=== PATIENT | female | born 1965 | race Caucasian/White ===

== ENCOUNTER 2021-01-18 14:09 | Emergency (ER) | payer MEDICARE ==
[2021-01-18] MEDS ORDERED: Famotidine 20 MG/2 ML SDV IVPUSH ONE (14:47)
[2021-01-18] MEDS ORDERED: Sodium Chloride 0.9% 10 ML Syringe FLUSH PRN (14:47)
[2021-01-18] MEDS ORDERED: Ondansetron 4 MG Tab.DIS PO ONE (14:47)
[2021-01-18] MEDS ORDERED: Sodium Chloride 0.9% 1,000 ML IV SCH (15:00)
--- NOTE | 2021-01-18 17:15 | EDM.PDOC ---
ED HPI GENERAL MEDICAL PROBLEM - General Chief Complaint: Abdominal Pain Stated Complaint: ABDOMINAL PAIN Time Seen by Provider: 01/18/21 14:29 Source of Information: Reports: Patient, RN Notes Reviewed - History of Present Illness INITIAL COMMENTS - FREE TEXT/NARRATIVE: 55 yr old female comes in with abd pain that has been present for several weeks or more, worse this past week. Pain is mostly upper mid abd with occasional radiation up into chest. She has had nausea, decreased appetite. No vomiting or diarrhea. Has been constipated. Hx of prior cholecystectomy. No recent cough, fever or chills. She was scoped upper and lower late last year. She states she is reduced to "eating eggs". Stopped taking her omeprazole 2 days ago for reasons that are unclear. Not actively vomiting. No blood in the stool. She describes hx of severe GERD, states it has been bad "ever since I had my GB out" abd Pain Score (Numeric/FACES): 9 - Related Data Allergies Allergy/AdvReac Type Severity Reaction Status Date / Time Penicillins Allergy Severe Hives Verified 01/18/21 14:20 Sulfa (Sulfonamide Allergy Severe Hives Verified 01/18/21 14:20 Antibiotics) Past Medical History Musculoskeletal History: Reports: Other (See Below) Other Musculoskeletal History: spinabifida, several muscular skeletal surgeries Social & Family History - Tobacco Use Tobacco Use Status *Q: Never Tobacco User - Recreational Drug Use Recreational Drug Use: No ED ROS GENERAL - Review of Systems Review Of Systems: See Below Constitutional: Denies: Fever, Chills, Diaphoresis HEENT: Reports: No Symptoms Respiratory: Denies: Shortness of Breath Cardiovascular: Denies: Chest Pain GI/Abdominal: Reports: Abdominal Pain, Constipation (chronic), Decreased Appetite, Nausea. Denies: Diarrhea, Hematemesis, Hematochezia, Melena, Vomiting ED EXAM, GI/ABD - Physical Exam Exam: See Below General Appearance: Alert, No Apparent Distress Throat/Mouth: Normal Inspection Head: Atraumatic Neck: Supple Respiratory/Chest: No Respiratory Distress, Lungs Clear, Normal Breath Sounds Cardiovascular: Tachycardia GI/Abdominal Exam: Tender (Moderate upper mid abd tenderness, lower abd soft and nontender). No: Guarding, Rebound Back Exam: No: CVA Tenderness (L), CVA Tenderness (R) Neurological: Alert, Oriented, No Motor/Sensory Deficits Skin Exam: Warm, Dry, Normal Color Course - Vital Signs Last Recorded V/S: Last Vital Signs Temp 97.1 F 01/18/21 14:16 Pulse 108 H 01/18/21 14:16 Resp 18 01/18/21 14:16 BP 129/86 01/18/21 14:16 Pulse Ox 96 01/18/21 14:16 - Orders/Labs/Meds Orders: Active Orders 24 hr Category Date Time Status Abdomen 2V AP Flat Upright [CR] Stat Exams 01/18/21 17:12 Taken Peripheral IV Insertion Adult [OM.PC] Stat Oth 01/18/21 14:47 Ordered Labs: Laboratory Tests 01/18/21 01/18/21 01/18/21 Range/Units 14:20 14:20 14:20 WBC 11.23 H (3.98-10.04) K/mm3 RBC 4.79 (3.98-5.22) M/mm3 Hgb 13.2 (11.2-15.7) gm/dl Hct 40.7 (34.1-44.9) % MCV 85.0 (79.4-94.8) fl MCH 27.6 (25.6-32.2) pg MCHC 32.4 (32.2-35.5) g/dl RDW Std Deviation 39.9 (36.4-46.3) fL Plt Count 406 H (182-369) K/mm3 MPV 9.2 L (9.4-12.3) fl Neut % (Auto) 66.8 (34.0-71.1) % Lymph % (Auto) 24.6 (19.3-51.7) % Graham % (Auto) 6.2 (4.7-12.5) % Eos % (Auto) 1.8 (0.7-5.8) Baso % (Auto) 0.3 (0.1-1.2) % Neut # (Auto) 7.51 H (1.56-6.13) K/mm3 Lymph # (Auto) 2.76 (1.18-3.74) K/mm3 Graham # (Auto) 0.70 H (0.24-0.36) K/mm3 Eos # (Auto) 0.20 (0.04-0.36) K/mm3 Baso # (Auto) 0.03 (0.01-0.08) K/mm3 Sodium 140 (136-145) mEq/L Potassium 3.6 (3.5-5.1) mEq/L Chloride 100 (98-107) mEq/L Carbon Dioxide 28 (21-32) mEq/L Anion Gap 15.6 H (5-15) BUN 18 (7-18) mg/dL Creatinine 1.1 H (0.55-1.02) mg/dL Est Cr Clr Drug Dosing 55.53 mL/min Estimated GFR (MDRD) 51 (>60) mL/min BUN/Creatinine Ratio 16.4 (14-18) Glucose 122 H (74-106) mg/dL Calcium 9.5 (8.5-10.1) mg/dL Total Bilirubin 0.4 (0.2-1.0) mg/dL GGT 21 (5-55) U/L AST 15 (15-37) U/L ALT 24 (14-59) U/L Alkaline Phosphatase 130 H (46-116) U/L C-Reactive Protein 2.1 H* (<1.0) mg/dL Total Protein 8.4 H (6.4-8.2) g/dl Albumin 3.3 L (3.4-5.0) g/dl Globulin 5.1 gm/dL Albumin/Globulin Ratio 0.7 L (1-2) Lipase 138 (73-393) U/L Meds: Medications Discontinued Medications Generic Name Dose Route Start Last Admin Trade Name Freq PRN Reason Stop Dose Admin Famotidine 20 mg 01/18/21 14:47 01/18/21 15:01 Pepcid IVPUSH 01/18/21 14:48 20 mg ONETIME ONE Administration Sodium Chloride 1,000 mls @ 150 mls/hr 01/18/21 15:00 01/18/21 15:00 Normal Saline IV 150 mls/hr ASDIRECTED RACHEAL Administration Magnesium Citrate 296 ml 01/18/21 18:32 01/18/21 18:46 Citrate Of Magnesia PO 01/18/21 18:33 296 ml ONETIME ONE Administration Magnesium Citrate Confirm 01/18/21 18:34 01/18/21 18:47 Citrate Of Magnesia Administered 01/18/21 18:35 Not Given Dose 296 ml .ROUTE .STK-MED ONE Ondansetron HCl 4 mg 01/18/21 14:47 01/18/21 15:01 Zofran Odt PO 01/18/21 14:48 4 mg ONETIME ONE Administration Sodium Chloride 10 ml 01/18/21 14:47 01/18/21 15:01 Saline Flush FLUSH 10 ml ASDIRECTED PRN Administration Keep Vein Open - Re-Assessments/Exams Free Text/Narrative Re-Assessment/Exam: 01/18/21 18:29 WBC 11,000, CRP 2. Lipase, bili., liver stuff all normal. Feels much better after zofran 4 mg IV and pepcid 20 mg IV. As noted she has not been taking her omeprazole the last 2 or 3 days. She describes severe GERD with constipation on top of that. Her flat and upright shows large amt of stool in the colon. she states she is having somewhat regular BM's. she does not appear to have an acute abd. Have offered CT of Abd, she does not feel that she needs that. She feels up to starting omeprazole again. Will have her add pepcid or famotidine 20 mg daily for now. Will have her follow up with Dr Tang or Dr Tyson early next week. 01/18/21 Flat and upright abd also show a very large amt of stool in the colon, will send home with a bottle of mag citrate. Departure - Departure Time of Disposition: 18:30 Disposition: Home, Self-Care 01 Condition: Fair Clinical Impression: Abdominal pain Gastritis Qualifiers: Gastritis type: unspecified gastritis Chronicity: unspecified Gastritis bleeding: without bleeding Qualified Code(s): K29.70 - Gastritis, unspecified, without bleeding Constipation Qualifiers: Constipation type: unspecified constipation type Qualified Code(s): K59.00 - Constipation, unspecified - Discharge Information Instructions: Gastritis, Adult, [id number] Referrals: Cecilia Garner MD [Primary Care Provider] - Forms: ED Department Discharge Additional Instructions: Resume your omeprazole 20 mg twice daily. In addition start pepcid (famotidine generic) 20 mg twice daily for further acid reduction. Continue to take tums in addition as needed or liquid maalox or mylanta 3 to 4 times daily for further acid neutralization. Mag Citrate, drink 1/2 bottle tonight, drink the remainder tomorrow or at a later date as needed. See Dr Tang or Dr Tyson at [facility] next week, next available appointment. Return to ED as needed if symptoms worsening in any way. Sepsis Event Note (ED) - Evaluation Sepsis Screening Result: No Definite Risk - My Orders Last 24 Hours: My Active Orders 01/18/21 14:47 Peripheral IV Insertion Adult [OM.PC] Stat 01/18/21 17:12 Abdomen 2V AP Flat Upright [CR] Stat - Assessment/Plan Last 24 Hours: My Active Orders 01/18/21 14:47 Peripheral IV Insertion Adult [OM.PC] Stat 01/18/21 17:12 Abdomen 2V AP Flat Upright [CR] Stat
[2021-01-18] MEDS ORDERED: Magnesium Citrate Solution 296 ML Bottle PO ONE (18:32)
[2021-01-18] MEDS ORDERED: Magnesium Citrate Solution 296 ML Bottle ONE (18:34)
--- NOTE | 2021-01-20 09:20 | CR ---
Abdomen: Supine and upright views of the abdomen were obtained. Comparison: No prior abdominal x-rays available. Slight increase stool within portions of the colon are noted. Bowel gas pattern is otherwise unremarkable. Degenerative change and mild scoliosis is noted within the spine. Left hip prosthesis is noted. Previous defect is seen within the posterior sacrum either postsurgical or developmental. Surgical clip is seen from prior cholecystectomy. No free air is seen. Impression: 1. Findings as noted above. 2. Nothing acute is seen. Diagnostic code #2
== END 2021-01-18 18:50 | disposition home or self-care (01) ==
LOC: JD.ED 14:09
DX: K29.70 Gastritis, unspecified, without bleeding (principal); K59.00 Constipation, unspecified; Z88.0 Allergy status to penicillin; Z88.2 Allergy status to sulfonamides; Q05.9 Spina bifida, unspecified
CPT/HCPCS: 36415; 74019; 80053; 82977; 83690; 85025; 86140; 96374; 99284; A9270; J3490; J7030

== ENCOUNTER 2021-07-01 15:47 | Emergency (ER) | payer MEDICARE ==
--- NOTE | 2021-07-01 16:19 | EDM.PDOC ---
ED HPI GENERAL MEDICAL PROBLEM - General Chief Complaint: General Stated Complaint: RT ANKLE SWELLING/SENT BY RAFFAELE Time Seen by Provider: 07/01/21 16:18 - History of Present Illness INITIAL COMMENTS - FREE TEXT/NARRATIVE: 55-year-old female sent here by Dr. Garner as she is not able to keep her medications down. Other than the patient's injectable diabetes medications patient has not been taking her oral medications because she just keeps throwing them back up and she does not see the point taking them if she vomits some right back up. She has had significantly worsening edema with this. She denies any chest pain or breathing difficulties with this. Patient vomits 0-3 times a day, it is usually dark watery material black at times. She denies fever or chills and otherwise does not seem to have significant abdominal pain. The patient has a lot of problems with her hiatal hernia and they are anticipating surgery for this. Her lower extremity edema is getting much worse that she is no longer on her diuretics. She denies any chest pain or shortness of breath however. Generalized Pain Score (Numeric/FACES): 8 - Related Data Allergies Allergy/AdvReac Type Severity Reaction Status Date / Time Penicillins Allergy Severe Hives Verified 07/01/21 16:17 Sulfa (Sulfonamide Allergy Severe Hives Verified 07/01/21 16:17 Antibiotics) Home Meds: Home Meds Furosemide [Lasix] 40 mg PO DAILY #20 tab 07/01/21 [Rx] Insulin Degludec [Tresiba] 50 units SUBCUT DAILY 07/01/21 [History] Liraglutide [Victoza 2-Kevin] 1.8 mg SUBCUT DAILY 07/01/21 [History] Ondansetron [Ondansetron ODT] 4 mg PO Q6H PRN #30 tab.rapdis 07/01/21 [Rx] Potassium Chloride [Klor-Con M10] 10 meq PO ASDIRECTED #40 tab.er.prt 07/01/21 [Rx] Past Medical History Musculoskeletal History: Reports: Other (See Below) Other Musculoskeletal History: spinabifida, several muscular skeletal surgeries ED ROS GENERAL - Review of Systems Review Of Systems: See Below Constitutional: Denies: Fever, Chills HEENT: Reports: No Symptoms Respiratory: Reports: No Symptoms Cardiovascular: Reports: No Symptoms GI/Abdominal: Reports: Nausea, Vomiting. Denies: Black Stool, Bloody Stool : Reports: No Symptoms Musculoskeletal: Reports: No Symptoms Skin: Reports: No Symptoms Neurological: Reports: No Symptoms ED EXAM, GENERAL - Physical Exam Exam: See Below Exam Limited By: No Limitations General Appearance: Alert, No Apparent Distress Eye Exam: Bilateral Eye: Normal Inspection, PERRL Ears: Normal External Exam, Normal Canal, Hearing Grossly Normal, Normal TMs Nose: Normal Inspection, Normal Mucosa, No Blood Throat/Mouth: Normal Inspection, Normal Lips, Normal Gums, Normal Oropharynx, Normal Voice, No Airway Compromise Head: Atraumatic, Normocephalic Neck: Normal Inspection, Supple, Non-Tender, Full Range of Motion. No: Lymphadenopathy (L), Lymphadenopathy (R) Respiratory/Chest: No Respiratory Distress, Lungs Clear, Normal Breath Sounds Cardiovascular: Regular Rate, Rhythm, No Murmur, Other (2-3+ lower extremity edema) GI/Abdominal: Normal Bowel Sounds, Soft, Non-Tender, Other (Obese) Rectal (Female) Exam: Normal Rectal Tone, Heme - Stool, Hemorrhoids. No: Black Stool, Bloody Stool Back Exam: Normal Inspection, Full Range of Motion. No: CVA Tenderness (L), CVA Tenderness (R) Extremities: Pedal Edema (2-3+ pitting). No: No Pedal Edema Neurological: Alert, Oriented, Normal Cognition #1 Interpretation EKG Date: 07/01/21 Rhythm: NSR Rate (Beats/Min): 83 Kirby: Normal P-Wave: Present QRS: Other (Low voltage) ST-T: Normal QT: Normal Comparison: NA - No Prior EKG (Low voltage otherwise normal EKG) Course - Vital Signs Last Recorded V/S: Last Vital Signs Temp 36.4 C 07/01/21 16:12 Pulse 94 07/01/21 16:12 Resp 18 07/01/21 16:12 BP 130/68 07/01/21 16:12 Pulse Ox 98 07/01/21 16:12 - Orders/Labs/Meds Orders: Active Orders 24 hr Category Date Time Status EKG Documentation Completion [RC] STAT Care 07/01/21 17:01 Active Labs: Laboratory Tests 07/01/21 07/01/21 07/01/21 Range/Units 17:19 17:19 17:19 WBC 10.15 H (3.98-10.04) K/mm3 RBC 4.85 (3.98-5.22) M/mm3 Hgb 13.4 (11.2-15.7) gm/dl Hct 40.6 (34.1-44.9) % MCV 83.7 (79.4-94.8) fl MCH 27.6 (25.6-32.2) pg MCHC 33.0 (32.2-35.5) g/dl RDW Std Deviation 41.1 (36.4-46.3) fL Plt Count 329 D (182-369) K/mm3 MPV 9.5 (9.4-12.3) fl Neut % (Auto) 69.3 (34.0-71.1) % Lymph % (Auto) 21.9 (19.3-51.7) % Eaton % (Auto) 5.7 (4.7-12.5) % Eos % (Auto) 2.8 (0.7-5.8) Baso % (Auto) 0.3 (0.1-1.2) % Neut # (Auto) 7.04 H (1.56-6.13) K/mm3 Lymph # (Auto) 2.22 (1.18-3.74) K/mm3 Eaton # (Auto) 0.58 H (0.24-0.36) K/mm3 Eos # (Auto) 0.28 (0.04-0.36) K/mm3 Baso # (Auto) 0.03 (0.01-0.08) K/mm3 PT 10.7 (9.7-12.0) SECONDS INR 1.00 APTT 25.4 (21.7-31.4) SECONDS Sodium 144 (136-145) mEq/L Potassium 3.5 (3.5-5.1) mEq/L Chloride 105 (98-107) mEq/L Carbon Dioxide 31 (21-32) mEq/L Anion Gap 11.5 (5-15) BUN 11 (7-18) mg/dL Creatinine 1.0 (0.55-1.02) mg/dL Est Cr Clr Drug Dosing 61.09 mL/min Estimated GFR (MDRD) 57 (>60) mL/min BUN/Creatinine Ratio 11.0 L (14-18) Glucose 156 H (70-99) mg/dL Calcium 9.2 (8.5-10.1) mg/dL Total Bilirubin 0.2 (0.2-1.0) mg/dL AST 11 L (15-37) U/L ALT 20 (14-59) U/L Alkaline Phosphatase 121 H (46-116) U/L Troponin I < 0.017 (0.00-0.056) ng/mL NT-Pro-B Natriuret Pep (0-125) pg/mL Total Protein 7.8 (6.4-8.2) g/dl Albumin 3.0 L (3.4-5.0) g/dl Globulin 4.8 gm/dL Albumin/Globulin Ratio 0.6 L (1-2) 07/01/21 Range/Units 17:19 WBC (3.98-10.04) K/mm3 RBC (3.98-5.22) M/mm3 Hgb (11.2-15.7) gm/dl Hct (34.1-44.9) % MCV (79.4-94.8) fl MCH (25.6-32.2) pg MCHC (32.2-35.5) g/dl RDW Std Deviation (36.4-46.3) fL Plt Count (182-369) K/mm3 MPV (9.4-12.3) fl Neut % (Auto) (34.0-71.1) % Lymph % (Auto) (19.3-51.7) % Eaton % (Auto) (4.7-12.5) % Eos % (Auto) (0.7-5.8) Baso % (Auto) (0.1-1.2) % Neut # (Auto) (1.56-6.13) K/mm3 Lymph # (Auto) (1.18-3.74) K/mm3 Eaton # (Auto) (0.24-0.36) K/mm3 Eos # (Auto) (0.04-0.36) K/mm3 Baso # (Auto) (0.01-0.08) K/mm3 PT (9.7-12.0) SECONDS INR APTT (21.7-31.4) SECONDS Sodium (136-145) mEq/L Potassium (3.5-5.1) mEq/L Chloride (98-107) mEq/L Carbon Dioxide (21-32) mEq/L Anion Gap (5-15) BUN (7-18) mg/dL Creatinine (0.55-1.02) mg/dL Est Cr Clr Drug Dosing mL/min Estimated GFR (MDRD) (>60) mL/min BUN/Creatinine Ratio (14-18) Glucose (70-99) mg/dL Calcium (8.5-10.1) mg/dL Total Bilirubin (0.2-1.0) mg/dL AST (15-37) U/L ALT (14-59) U/L Alkaline Phosphatase (46-116) U/L Troponin I (0.00-0.056) ng/mL NT-Pro-B Natriuret Pep 325 H (0-125) pg/mL Total Protein (6.4-8.2) g/dl Albumin (3.4-5.0) g/dl Globulin gm/dL Albumin/Globulin Ratio (1-2) Meds: Medications Discontinued Medications Generic Name Dose Route Start Last Admin Trade Name Freq PRN Reason Stop Dose Admin Furosemide 40 mg 07/01/21 18:28 07/01/21 19:08 Furosemide 40 Mg Tab PO 07/01/21 18:29 40 mg ONETIME ONE Administration Ondansetron HCl 4 mg 07/01/21 18:28 07/01/21 18:40 Ondansetron 4 Mg Tab.Dis PO 07/01/21 18:29 4 mg ONETIME ONE Administration Ondansetron HCl 8 mg 07/01/21 19:19 Ondansetron 4 Mg Tab.Dis PO 07/01/21 19:20 ONETIME ONE Potassium Chloride 20 meq 07/01/21 18:28 07/01/21 19:08 Potassium Chloride 20 Meq Tab.Er PO 07/01/21 18:29 20 meq ONETIME ONE Administration - Re-Assessments/Exams Free Text/Narrative Re-Assessment/Exam: 07/01/21 19:20 Chest x-ray is unremarkable abdominal x-ray shows very large stool accumulation especially in the ascending colon but fairly large in the descending colon as well to a lesser degree the transverse colon. I think a lot of her symptoms are secondary to her constipation leading to her nausea and vomiting. The patient by history has some black vomitus material at times but her Hemoccult is negative. She is not been able to keep down her omeprazole. At this point I have strongly urged the patient to use MiraLAX and she has basically given herself a drug holiday her blood sugars are not too bad on her injectable type 2 diabetes medications her legs are horribly swollen I will start her on Lasix 40 mg daily and Klor-Con 20 mEq daily. I will also start her on some Zofran so she can take medicines to keep her other medications down she will restart her omeprazole 30 to 60 minutes before her morning meal she will start out with frequent small meals. Departure - Departure Time of Disposition: 19:22 Disposition: Home, Self-Care 01 Clinical Impression: Nausea & vomiting Constipation Qualifiers: Constipation type: unspecified constipation type Qualified Code(s): K59.00 - Constipation, unspecified - Discharge Information Prescriptions: Potassium Chloride [Klor-Con M10] 10 meq PO ASDIRECTED #40 tab.er.prt Furosemide [Lasix] 40 mg PO DAILY #20 tab Ondansetron [Ondansetron ODT] 4 mg PO Q6H PRN #30 tab.rapdis PRN Reason: Nausea/Vomiting Instructions: Constipation, Adult, Nausea and Vomiting, Adult Referrals: Cecilia Garner MD [Primary Care Provider] - Forms: ED Department Discharge Additional Instructions: You are welcome to return to the emergency room with any problems or concerning symptoms. At this point I think it is essential to get control of your constipation use MiraLAX three fourths of a capful daily. I think when she constipation in is doing better you nausea and vomiting will get better as well. You have been off your medications for a while we can restart them gently at this point getting on your omeprazole is essential. Take this daily 30 to 60 minutes before your morning meal. Hold your other medications for now I started you on Lasix 40 mg take 1 every morning. With this take potassium chloride 2 10 mEq tablets daily you can split these up so it is easier on your stomach. Start MiraLAX 3/4 of a capful daily in 14 to 16 ounces of water. This is very effective for your constipation. Sepsis Event Note (ED) - Evaluation Sepsis Screening Result: No Definite Risk - Focused Exam Vital Signs: Vital Signs Temp Pulse Resp BP Pulse Ox 07/01/21 16:12 36.4 C 94 18 130/68 98 - My Orders Last 24 Hours: My Active Orders 07/01/21 17:01 EKG Documentation Completion [RC] STAT - Assessment/Plan Last 24 Hours: My Active Orders 07/01/21 17:01 EKG Documentation Completion [RC] STAT
--- NOTE | 2021-07-01 17:52 | CR ---
Chest: Portable view of the chest was obtained. Comparison: No prior chest imaging is available. Heart size and mediastinum are normal. Lungs show no acute parenchymal change. Prior left shoulder surgery is noted with mild degenerative change. No acute osseous abnormality is appreciated. Impression: 1. Findings as noted above. 2. Nothing acute is appreciated on portable chest x-ray. Diagnostic code #2
[2021-07-01] MEDS ORDERED: Furosemide 40 MG Tab PO ONE (18:28)
[2021-07-01] MEDS ORDERED: Potassium Chloride 20 MEQ Tab.ER PO ONE (18:28)
[2021-07-01] MEDS ORDERED: Ondansetron 4 MG Tab.DIS PO ONE ×2 (18:28→19:19)
--- NOTE | 2021-07-01 19:01 | CR ---
Abdomen: Supine view of the abdomen was obtained. Comparison: Prior abdominal x-ray of 01/18/21. Left hip prosthesis is noted. Surgical clips are seen from prior cholecystectomy. Mild degenerative change is scattered within the spine. There is increased stool noted throughout the colon. Bowel gas pattern is otherwise unremarkable. No abnormal calcifications or soft tissue abnormality is appreciated. Impression: 1. Increased stool within the colon. 2. Other findings as noted above which are believed to be incidental. Diagnostic code #2
== END 2021-07-01 19:53 | disposition home or self-care (01) ==
LOC: JD.ED 15:47
DX: R11.2 Nausea with vomiting, unspecified (principal); K59.00 Constipation, unspecified; R22.41 Localized swelling, mass and lump, right lower limb; E11.9 Type 2 diabetes mellitus without complications; R60.0 Localized edema; Z88.2 Allergy status to sulfonamides; Z79.4 Long term (current) use of insulin; Z79.899 Other long term (current) drug therapy; Z88.0 Allergy status to penicillin; R60.1 Generalized edema
CPT/HCPCS: 36415; 71045; 74018; 80053; 83880; 84484; 85025; 85610; 85730; 93005; 99284; A9270; 93010; 99283

== ENCOUNTER 2021-07-06 14:47 | Inpatient (IN) | payer MEDICARE ==
[2021-07-06] MEDS ORDERED: Sodium Chloride 0.9% 10 ML Syringe FLUSH PRN (15:17)
--- NOTE | 2021-07-06 15:33 | EDM.PDOC ---
ED HPI GENERAL MEDICAL PROBLEM - General Chief Complaint: Skin Complaint Stated Complaint: SWOLLEN LEGS Time Seen by Provider: 07/06/21 15:08 Source of Information: Reports: Patient History Limitations: Reports: No Limitations - History of Present Illness INITIAL COMMENTS - FREE TEXT/NARRATIVE: The patient presents with redness and swelling to the left lower leg. She was seen here about 5 days ago for nausea and vomiting and leg swelling. She could not keep her medications down and her legs swelled up. She was given something for the nausea and swelling. The swelling is a little better but now for the past to days her left leg has redness. The redness is on the entire foot low leg and it is going past the knee on both sides. She has no fever or chills. She has no chest pain or shortness of breath. Onset: Gradual Duration: Day(s): Location: Reports: Lower Extremity, Left (swelling and redness) Quality: Reports: Sharp Severity: Moderate Improves with: Reports: Immobilization Worsens with: Reports: Movement Context: Denies: Trauma Associated Symptoms: Reports: No Other Symptoms Treatments TAG WRITER: Reports: Other Medication(s) Other Treatments TAG WRITER: triple antibiotic ointment - Related Data Allergies Allergy/AdvReac Type Severity Reaction Status Date / Time Penicillins Allergy Intermediate Hives Verified 07/06/21 15:04 Sulfa (Sulfonamide Allergy Intermediate Hives Verified 07/06/21 15:04 Antibiotics) Home Meds: Home Meds Furosemide [Lasix] 40 mg PO DAILY #20 tab 07/01/21 [Rx] Insulin Degludec [Tresiba] 50 units SUBCUT DAILY 07/01/21 [History] Liraglutide [Victoza 2-Kevin] 1.8 mg SUBCUT DAILY 07/01/21 [History] Ondansetron [Ondansetron ODT] 4 mg PO Q6H PRN #30 tab.rapdis 07/01/21 [Rx] Potassium Chloride [Klor-Con M10] 10 meq PO ASDIRECTED #40 tab.er.prt 07/01/21 [Rx] Past Medical History HEENT History: Reports: Impaired Vision Gastrointestinal History: Reports: GERD, Hiatal Hernia Musculoskeletal History: Reports: Arthritis, Other (See Below) Other Musculoskeletal History: spinabifida, several muscular skeletal surgeries Endocrine/Metabolic History: Reports: Diabetes, Type II, Obesity/BMI 30+ Dermatologic History: Reports: Cellulitis - Past Surgical History GI Surgical History: Reports: Cholecystectomy Musculoskeletal Surgical History: Reports: Hip Replacement, Shoulder Replacement Other Musculoskeletal Surgeries/Procedures:: left hip and left shoulder replacements Social & Family History - Tobacco Use Tobacco Use Status *Q: Never Tobacco User Second Hand Smoke Exposure: No - Caffeine Use Caffeine Use: Reports: None - Recreational Drug Use Recreational Drug Use: No ED ROS GENERAL - Review of Systems Review Of Systems: See Below Constitutional: Reports: No Symptoms HEENT: Reports: No Symptoms Respiratory: Reports: No Symptoms Cardiovascular: Reports: No Symptoms Endocrine: Reports: No Symptoms GI/Abdominal: Reports: No Symptoms : Reports: No Symptoms Musculoskeletal: Reports: Other (Left leg swelling and redness) ED EXAM, SKIN/RASH Exam: See Below Exam Limited By: No Limitations General Appearance: Alert, No Apparent Distress Ears: Normal External Exam Nose: Normal Inspection Head: Atraumatic, Normocephalic Neck: Normal Inspection Respiratory/Chest: No Respiratory Distress, Lungs Clear, Normal Breath Sounds Cardiovascular: Regular Rate, Rhythm, No Edema, No Murmur GI/Abdominal: Soft, Non-Tender, No Organomegaly, No Mass Back Exam: Normal Inspection Extremities: Other (Erythema and edema of the left lower leg. The erythema is on the foot, lower leg and now it is traveling up both sides of the knee. There is some small abrasions to the front of the lower leg with some blisters. There is also an abrasion to the right anterior leg with some erythema around it.) Neurological: Alert, Oriented, No Motor/Sensory Deficits Course - Vital Signs Last Recorded V/S: Last Vital Signs Temp 98.1 F 07/06/21 15:01 Pulse 111 H 07/06/21 15:01 Resp 18 07/06/21 15:01 BP 139/63 07/06/21 15:01 Pulse Ox 97 07/06/21 15:01 - Orders/Labs/Meds Orders: Active Orders 24 hr Category Date Time Status Peripheral IV Care [RC] . DIRECTED Care 07/06/21 15:18 Active VL Duplex Lwr Ext Veins Ltd Lt [US] Stat Exams 07/06/21 17:18 Ordered BLOOD CULTURE [MREF] Stat Lab 07/06/21 15:18 Ordered BLOOD CULTURE [MREF] Stat Lab 07/06/21 15:18 Ordered Sodium Chloride 0.9% [Saline Flush] Med 07/06/21 15:17 Active 10 ml FLUSH ASDIRECTED PRN Blood Culture x2 Reflex Set [OM.PC] Stat Oth 07/06/21 15:17 Ordered Peripheral IV Insertion Adult [OM.PC] Urgent Oth 07/06/21 15:17 Ordered Medication Orders Sodium Chloride (Sodium Chloride 0.9% 10 Ml Syringe) 10 ml FLUSH ASDIRECTED PRN PRN Reason: Keep Vein Open Last Admin: 07/06/21 16:05 Dose: 10 ml Documented by: DENICE Labs: Laboratory Tests 07/06/21 07/06/21 07/06/21 Range/Units 15:38 15:38 15:38 WBC 16.79 H (3.98-10.04) K/mm3 RBC 4.50 (3.98-5.22) M/mm3 Hgb 12.1 (11.2-15.7) gm/dl Hct 38.0 (34.1-44.9) % MCV 84.4 (79.4-94.8) fl MCH 26.9 (25.6-32.2) pg MCHC 31.8 L (32.2-35.5) g/dl RDW Std Deviation 43.0 (36.4-46.3) fL Plt Count 256 (182-369) K/mm3 MPV 9.7 (9.4-12.3) fl Neut % (Auto) 86.7 H (34.0-71.1) % Lymph % (Auto) 8.8 L (19.3-51.7) % [place] % (Auto) 4.0 L (4.7-12.5) % Eos % (Auto) 0.2 L (0.7-5.8) Baso % (Auto) 0.1 (0.1-1.2) % Neut # (Auto) 14.56 H (1.56-6.13) K/mm3 Lymph # (Auto) 1.47 (1.18-3.74) K/mm3 [place] # (Auto) 0.67 H (0.24-0.36) K/mm3 Eos # (Auto) 0.03 L (0.04-0.36) K/mm3 Baso # (Auto) 0.02 (0.01-0.08) K/mm3 Manual Slide Review Abnormal smear Sodium 134 L D (136-145) mEq/L Potassium 3.4 L (3.5-5.1) mEq/L Chloride 97 L (98-107) mEq/L Carbon Dioxide 29 (21-32) mEq/L Anion Gap 11.4 (5-15) BUN 27 H (7-18) mg/dL Creatinine 1.5 H (0.55-1.02) mg/dL Est Cr Clr Drug Dosing 40.72 mL/min Estimated GFR (MDRD) 36 (>60) mL/min BUN/Creatinine Ratio 18.0 (14-18) Glucose 217 H (70-99) mg/dL Lactic Acid 2.0 (0.4-2.0) mmol/L Calcium 8.7 (8.5-10.1) mg/dL Total Bilirubin 0.6 (0.2-1.0) mg/dL AST 12 L (15-37) U/L ALT 23 (14-59) U/L Alkaline Phosphatase 137 H (46-116) U/L C-Reactive Protein (<1.0) mg/dL Total Protein 7.9 (6.4-8.2) g/dl Albumin 2.6 L (3.4-5.0) g/dl Globulin 5.3 gm/dL Albumin/Globulin Ratio 0.5 L (1-2) SARS-CoV-2 RNA (TODD) (NEGATIVE) 07/06/21 07/06/21 Range/Units 15:38 15:55 WBC (3.98-10.04) K/mm3 RBC (3.98-5.22) M/mm3 Hgb (11.2-15.7) gm/dl Hct (34.1-44.9) % MCV (79.4-94.8) fl MCH (25.6-32.2) pg MCHC (32.2-35.5) g/dl RDW Std Deviation (36.4-46.3) fL Plt Count (182-369) K/mm3 MPV (9.4-12.3) fl Neut % (Auto) (34.0-71.1) % Lymph % (Auto) (19.3-51.7) % Ogle % (Auto) (4.7-12.5) % Eos % (Auto) (0.7-5.8) Baso % (Auto) (0.1-1.2) % Neut # (Auto) (1.56-6.13) K/mm3 Lymph # (Auto) (1.18-3.74) K/mm3 Ogle # (Auto) (0.24-0.36) K/mm3 Eos # (Auto) (0.04-0.36) K/mm3 Baso # (Auto) (0.01-0.08) K/mm3 Manual Slide Review Sodium (136-145) mEq/L Potassium (3.5-5.1) mEq/L Chloride (98-107) mEq/L Carbon Dioxide (21-32) mEq/L Anion Gap (5-15) BUN (7-18) mg/dL Creatinine (0.55-1.02) mg/dL Est Cr Clr Drug Dosing mL/min Estimated GFR (MDRD) (>60) mL/min BUN/Creatinine Ratio (14-18) Glucose (70-99) mg/dL Lactic Acid (0.4-2.0) mmol/L Calcium (8.5-10.1) mg/dL Total Bilirubin (0.2-1.0) mg/dL AST (15-37) U/L ALT (14-59) U/L Alkaline Phosphatase (46-116) U/L C-Reactive Protein 37.9 H* (<1.0) mg/dL Total Protein (6.4-8.2) g/dl Albumin (3.4-5.0) g/dl Globulin gm/dL Albumin/Globulin Ratio (1-2) SARS-CoV-2 RNA (TODD) Negative (NEGATIVE) Meds: Medications Generic Name Dose Route Start Last Admin Trade Name Freq PRN Reason Stop Dose Admin Sodium Chloride 10 ml 07/06/21 15:17 07/06/21 16:05 Sodium Chloride 0.9% 10 Ml Syringe FLUSH 10 ml ASDIRECTED PRN Administration Keep Vein Open Discontinued Medications Generic Name Dose Route Start Last Admin Trade Name Freq PRN Reason Stop Dose Admin Hydromorphone HCl 0.5 mg 07/06/21 17:22 Hydromorphone 0.5 Mg/0.5 Ml Syringe IVPUSH 07/06/21 17:23 ONETIME ONE Vancomycin HCl 2 gm/ Sodium 250 mls @ 250 mls/hr 07/06/21 15:17 07/06/21 16:04 Chloride IV 07/06/21 16:16 250 mls/hr ONETIME ONE Administration - Re-Assessments/Exams Free Text/Narrative Re-Assessment/Exam: 07/06/21 15:33 I ordered an IV saline lock, blood cultures, labs, lactic acid and vancomycin 2 grams. I have also ordered a COVID swab. I feel she will be admitted. 07/06/21 17:23 Her WBC is elevated at 16.79. Her Na is low at 134. His K is low at 3.4. Her creatinine is elevated at 1.5. Her glucose was elevated at 217. Her lactic acid was normal at 2. Her alk phos was elevated at 137. Her CRP is elevated at 37.9. Her COVID is negative. I feel she needs to be admitted. I called Dr Avilez and he agreed to the admission. Departure - Departure Time of Disposition: 17:30 Disposition: Admitted As Inpatient 65 Condition: Fair Clinical Impression: Cellulitis of left leg - Discharge Information Referrals: Cecilia Garner MD [Primary Care Provider] - Forms: ED Department Discharge Sepsis Event Note (ED) - Evaluation Sepsis Screening Result: Possible Sepsis Risk - Focused Exam Vital Signs: Vital Signs Temp Pulse Resp BP Pulse Ox 07/06/21 15:01 98.1 F 111 H 18 139/63 97 - My Orders Last 24 Hours: My Active Orders 07/06/21 15:17 Sodium Chloride 0.9% [Saline Flush] 10 ml FLUSH ASDIRECTED PRN Blood Culture x2 Reflex Set [OM.PC] Stat Peripheral IV Insertion Adult [OM.PC] Urgent 07/06/21 15:18 Peripheral IV Care [RC] . DIRECTED BLOOD CULTURE [MREF] Stat BLOOD CULTURE [MREF] Stat 07/06/21 17:18 VL Duplex Lwr Ext Veins Ltd Lt [US] Stat - Assessment/Plan Last 24 Hours: My Active Orders 07/06/21 15:17 Sodium Chloride 0.9% [Saline Flush] 10 ml FLUSH ASDIRECTED PRN Blood Culture x2 Reflex Set [OM.PC] Stat Peripheral IV Insertion Adult [OM.PC] Urgent 07/06/21 15:18 Peripheral IV Care [RC] . DIRECTED BLOOD CULTURE [MREF] Stat BLOOD CULTURE [MREF] Stat 07/06/21 17:18 VL Duplex Lwr Ext Veins Ltd Lt [US] Stat
[2021-07-06] MEDS ORDERED: HYDROmorphone 0.5 MG/0.5 ML Syringe IVPUSH ONE (17:22)
[2021-07-06] MEDS ORDERED: Ondansetron 4 MG/2 ML SDV IV PRN (17:27)
[2021-07-06] MEDS: Heparin Sodium 5,000 Units/ML Vial SUBCUT SCH (18:07)
--- NOTE | 2021-07-06 18:28 | PCM.HP.2 ---
H&P History of Present Illness - General Date of Service: 07/06/21 Admit Problem/Dx: Admission Diagnosis/Problem Admission Diagnosis/Problem Cellulitis - History of Present Illness Initial Comments - Free Text/Narative: This is a 55F with PMhx noted below presenting for evaluation of left lower extremity edema. The patient has had 2 days of worsening left lower extremity erythema and edema. She denies previous history of DVT. She denies chest pain and SOB. Denies fever. She endorses nausea and vomiting. She denies abdominal pain. She presented to the ED. Blood cultures were obtained. She was started on IV vancomycin and admitted for further evaluation. - Related Data Allergies/Adverse Reactions: Allergies Allergy/AdvReac Type Severity Reaction Status Date / Time Penicillins Allergy Intermediate Hives Verified 07/06/21 15:04 Sulfa (Sulfonamide Allergy Intermediate Hives Verified 07/06/21 15:04 Antibiotics) Home Medications: Home Meds Furosemide [Lasix] 40 mg PO DAILY #20 tab 07/01/21 [Rx] Insulin Degludec [Tresiba] 50 units SUBCUT DAILY 07/01/21 [History] Liraglutide [Victoza 2-Kevin] 1.8 mg SUBCUT DAILY 07/01/21 [History] Ondansetron [Ondansetron ODT] 4 mg PO Q6H PRN #30 tab.rapdis 07/01/21 [Rx] Potassium Chloride [Klor-Con M10] 10 meq PO ASDIRECTED #40 tab.er.prt 07/01/21 [Rx] Past Medical History HEENT History: Reports: Impaired Vision Gastrointestinal History: Reports: GERD, Hiatal Hernia Musculoskeletal History: Reports: Arthritis, Other (See Below) Other Musculoskeletal History: spinabifida, several muscular skeletal surgeries Endocrine/Metabolic History: Reports: Diabetes, Type II, Obesity/BMI 30+ Dermatologic History: Reports: Cellulitis - Past Surgical History GI Surgical History: Reports: Cholecystectomy Musculoskeletal Surgical History: Reports: Hip Replacement, Shoulder Replacement Other Musculoskeletal Surgeries/Procedures:: left hip and left shoulder replacements Social & Family History - Tobacco Use Tobacco Use Status *Q: Never Tobacco User Second Hand Smoke Exposure: No - Caffeine Use Caffeine Use: Reports: None - Recreational Drug Use Recreational Drug Use: No H&P Review of Systems - Review of Systems: Review Of Systems: Comprehensive ROS is negative, except as noted in HPI. General: Reports: Weakness HEENT: Reports: No Symptoms Pulmonary: Reports: No Symptoms Cardiovascular: Reports: No Symptoms Gastrointestinal: Reports: Decreased Appetite Musculoskeletal: Reports: No Symptoms Skin: Reports: Erythema Psychiatric: Reports: No Symptoms Neurological: Reports: No Symptoms Exam - Exam Exam: See Below - Vital Signs Vital Signs: Last Vital Signs Temp 98.1 F 07/06/21 15:01 Pulse 111 H 07/06/21 15:01 Resp 18 07/06/21 15:01 BP 139/63 07/06/21 15:01 Pulse Ox 97 07/06/21 15:01 Weight: 215 lb - Exam General: Alert, Oriented HEENT: EOMI, Hearing Intact, Nares Patent, Normal Nasal Septum Neck: Supple Lungs: Clear to Auscultation, Normal Respiratory Effort Cardiovascular: Regular Rate, Regular Rhythm, Normal S1, Normal S2 GI/Abdominal Exam: Soft, Non-Tender, No Distention Extremities: Other (Erythema of right lower extremity; 2-3+ edema) Skin: Warm, Dry Neurological: Cranial Nerves Intact Neuro Extensive - Mental Status: Alert, Oriented x3, Normal Mood/Affect Neuro Extensive - Motor, Sensory, Reflexes: CN II-XII Intact Psychiatric: Alert, Normal Affect, Normal Mood - Patient Data Lab Results Last 24 hrs: Laboratory Results - last 24 hr 07/06/21 07/06/21 07/06/21 Range/Units 15:38 15:38 15:38 WBC 16.79 H (3.98-10.04) K/mm3 RBC 4.50 (3.98-5.22) M/mm3 Hgb 12.1 (11.2-15.7) gm/dl Hct 38.0 (34.1-44.9) % MCV 84.4 (79.4-94.8) fl MCH 26.9 (25.6-32.2) pg MCHC 31.8 L (32.2-35.5) g/dl RDW Std Deviation 43.0 (36.4-46.3) fL Plt Count 256 (182-369) K/mm3 MPV 9.7 (9.4-12.3) fl Neut % (Auto) 86.7 H (34.0-71.1) % Lymph % (Auto) 8.8 L (19.3-51.7) % [place] % (Auto) 4.0 L (4.7-12.5) % Eos % (Auto) 0.2 L (0.7-5.8) Baso % (Auto) 0.1 (0.1-1.2) % Neut # (Auto) 14.56 H (1.56-6.13) K/mm3 Lymph # (Auto) 1.47 (1.18-3.74) K/mm3 [place] # (Auto) 0.67 H (0.24-0.36) K/mm3 Eos # (Auto) 0.03 L (0.04-0.36) K/mm3 Baso # (Auto) 0.02 (0.01-0.08) K/mm3 Manual Slide Review Abnormal smear Sodium 134 L D (136-145) mEq/L Potassium 3.4 L (3.5-5.1) mEq/L Chloride 97 L (98-107) mEq/L Carbon Dioxide 29 (21-32) mEq/L Anion Gap 11.4 (5-15) BUN 27 H (7-18) mg/dL Creatinine 1.5 H (0.55-1.02) mg/dL Est Cr Clr Drug Dosing 40.72 mL/min Estimated GFR (MDRD) 36 (>60) mL/min BUN/Creatinine Ratio 18.0 (14-18) Glucose 217 H (70-99) mg/dL Lactic Acid 2.0 (0.4-2.0) mmol/L Calcium 8.7 (8.5-10.1) mg/dL Total Bilirubin 0.6 (0.2-1.0) mg/dL AST 12 L (15-37) U/L ALT 23 (14-59) U/L Alkaline Phosphatase 137 H (46-116) U/L C-Reactive Protein (<1.0) mg/dL Total Protein 7.9 (6.4-8.2) g/dl Albumin 2.6 L (3.4-5.0) g/dl Globulin 5.3 gm/dL Albumin/Globulin Ratio 0.5 L (1-2) SARS-CoV-2 RNA (TODD) (NEGATIVE) 07/06/21 07/06/21 Range/Units 15:38 15:55 WBC (3.98-10.04) K/mm3 RBC (3.98-5.22) M/mm3 Hgb (11.2-15.7) gm/dl Hct (34.1-44.9) % MCV (79.4-94.8) fl MCH (25.6-32.2) pg MCHC (32.2-35.5) g/dl RDW Std Deviation (36.4-46.3) fL Plt Count (182-369) K/mm3 MPV (9.4-12.3) fl Neut % (Auto) (34.0-71.1) % Lymph % (Auto) (19.3-51.7) % [place] % (Auto) (4.7-12.5) % Eos % (Auto) (0.7-5.8) Baso % (Auto) (0.1-1.2) % Neut # (Auto) (1.56-6.13) K/mm3 Lymph # (Auto) (1.18-3.74) K/mm3 [place] # (Auto) (0.24-0.36) K/mm3 Eos # (Auto) (0.04-0.36) K/mm3 Baso # (Auto) (0.01-0.08) K/mm3 Manual Slide Review Sodium (136-145) mEq/L Potassium (3.5-5.1) mEq/L Chloride (98-107) mEq/L Carbon Dioxide (21-32) mEq/L Anion Gap (5-15) BUN (7-18) mg/dL Creatinine (0.55-1.02) mg/dL Est Cr Clr Drug Dosing mL/min Estimated GFR (MDRD) (>60) mL/min BUN/Creatinine Ratio (14-18) Glucose (70-99) mg/dL Lactic Acid (0.4-2.0) mmol/L Calcium (8.5-10.1) mg/dL Total Bilirubin (0.2-1.0) mg/dL AST (15-37) U/L ALT (14-59) U/L Alkaline Phosphatase (46-116) U/L C-Reactive Protein 37.9 H* (<1.0) mg/dL Total Protein (6.4-8.2) g/dl Albumin (3.4-5.0) g/dl Globulin gm/dL Albumin/Globulin Ratio (1-2) SARS-CoV-2 RNA (TODD) Negative (NEGATIVE) Result Diagrams: 07/06/21 15:38 07/06/21 15:38 Sepsis Event Note - Evaluation Sepsis Screening Result: Possible Sepsis Risk - Focused Exam Vital Signs: Vital Signs Temp Pulse Resp BP Pulse Ox 07/06/21 15:01 98.1 F 111 H 18 139/63 97 Problem List Initiated/Reviewed/Updated: Yes Orders Last 24hrs: Active Orders 24 hr Category Date Time Status Patient Status [ADT] Routine ADT 07/06/21 18:08 Active Blood Glucose Check, Bedside [RC] QIDACANDBED Care 07/06/21 17:37 Active Cardiac Monitoring [RC] CONTINUOUS Care 07/06/21 17:31 Active Height and Weight [RC] DAILY Care 07/06/21 17:27 Active Intake and Output [RC] QSHIFT Care 07/06/21 17:31 Active Oxygen Therapy [RC] PRN Care 07/06/21 17:27 Active Peripheral IV Care [RC] . DIRECTED Care 07/06/21 15:18 Active Up With Assistance [RC] ASDIRECTED Care 07/06/21 17:27 Active VTE/DVT Education [RC] PER UNIT ROUTINE Care 07/06/21 17:27 Active Vital Signs [RC] Q4H Care 07/06/21 17:27 Active Consistent Carbohydrate Diet [DIET] Diet 07/06/21 Dinner Active VL Duplex Lwr Ext Veins Ltd Lt [US] Stat Exams 07/06/21 17:18 Ordered BASIC METABOLIC PANEL,BMP [CHEM] AM Lab 07/07/21 05:11 Ordered BLOOD CULTURE [MREF] Stat Lab 07/06/21 15:38 Received BLOOD CULTURE [MREF] Stat Lab 07/06/21 15:47 Received C-REACTIVE PROTEIN [CHEM] AM Lab 07/07/21 05:11 Ordered CBC WITH AUTO DIFF [HEME] AM Lab 07/07/21 05:11 Ordered VANCOMYCIN TROUGH [CHEM] Timed Lab 07/09/21 15:30 Ordered Acetaminophen [TylenoL] Med 07/06/21 17:27 Active 650 mg PO Q4H PRN Heparin Sodium Med 07/06/21 17:30 Active 5,000 units SUBCUT Q8H Insulin Lispro [HumaLOG] Med 07/06/21 22:00 Active See Protocol SUBCUT QIDACANDBED Ondansetron [Zofran] Med 07/06/21 17:27 Active 4 mg IV Q4H PRN Pharmacy to Dose - Vancomycin Med 07/06/21 17:45 Pending 1 dose .XX ASDIRECTED Sodium Chloride 0.9% [Saline Flush] Med 07/06/21 15:17 Active 10 ml FLUSH ASDIRECTED PRN Vancomycin 1 gm Med 07/07/21 16:00 Active Vancomycin 250 mg Sodium Chloride 0.9% [Normal Saline] 250 ml IV Q24H oxyCODONE Med 07/06/21 17:27 Active 5 mg PO Q4H PRN Blood Culture x2 Reflex Set [OM.PC] Stat Oth 07/06/21 15:17 Ordered Peripheral IV Insertion Adult [OM.PC] Urgent Oth 07/06/21 15:17 Ordered Resuscitation Status Routine Resus Stat 07/06/21 17:27 Ordered Medication Orders Acetaminophen (Acetaminophen 325 Mg Tab) 650 mg PO Q4H PRN PRN Reason: Pain (Mild 1-3)/fever Heparin Sodium (Porcine) (Heparin Sodium 5,000 Units/Ml Vial) 5,000 units SUBCUT Q8H [facility] Last Admin: 07/06/21 18:07 Dose: 5,000 units Documented by: DENICE Vancomycin HCl 1 gm/Vancomycin HCl 250 mg/ Sodium Chloride 250 mls @ 166.667 mls/hr IV Q24H [facility] Insulin Human Lispro (Insulin Lispro 100 Unit/Ml 10 Ml Vial) 0 unit SUBCUT QIDACANDBED [facility]; Protocol Ondansetron HCl (Ondansetron 4 Mg/2 Ml Sdv) 4 mg IV Q4H PRN PRN Reason: Nausea/Vomiting Oxycodone HCl (Oxycodone 5 Mg Tab) 5 mg PO Q4H PRN PRN Reason: Pain (moderate 4-6) Sodium Chloride (Sodium Chloride 0.9% 10 Ml Syringe) 10 ml FLUSH ASDIRECTED PRN PRN Reason: Keep Vein Open Last Admin: 07/06/21 16:05 Dose: 10 ml Documented by: DENICE Vancomycin HCl (Pharmacy To Dose - Vancomycin) 1 dose .XX ASDIRECTED [facility] Assessment/Plan Comment:: This is a 55F with PMhx noted below presenting for evaluation of left lower extremity edema. The patient has had 2 days of worsening left lower extremity erythema and edema. She denies previous history of DVT. In the ED. Blood cultures were obtained. She was started on IV vancomycin and admitted for further evaluation. 1. Sepsis secondary to Cellulitis of left lower extremity; tachycardia; +Leukocytosis 2. Hx of Type II DM 3. Hypovolemic hyponatremia; sodium 134 4. Hypokalemia 5. Acute kidney injury; Cr 1.5 Plan -continue vanco; pharm to dose -hold antihypertensives/hold lasix -gentle IVF -potassium replacement -elevate leg Code-DNR/DNI DVT ppx-heparin subq
[2021-07-06] MEDS ORDERED: Potassium Chloride 20 MEQ Tab.ER PO ONE (18:33)
[2021-07-06] MEDS ORDERED: Lactated Ringers 1,000 ML IV SCH (18:45)
[2021-07-06] MEDS: Insulin Lispro 100 UNIT/ML 10 ML Vial SUBCUT SCH (21:44)
[2021-07-06] MEDS: Calcium Carbonate 500 MG Tab.Chew PO PRN (21:45)
[2021-07-07] MEDS: Heparin Sodium 5,000 Units/ML Vial SUBCUT SCH ×3 (00:38→16:32)
[2021-07-07] MEDS: Insulin Lispro 100 UNIT/ML 10 ML Vial SUBCUT SCH ×4 (08:21→22:26)
--- NOTE | 2021-07-07 08:48 | US ---
Left lower extremity deep venous ultrasound: Duplex and color Doppler evaluation was obtained of the left common femoral, proximal greater saphenous, superficial femoral, popliteal, posterior tibial and peroneal veins. Right common femoral vein was also evaluated. Comparison: No prior extremity imaging is available. Findings: Large fat-containing lymph node is seen within the left groin which is believed to be incidental. Normal phasic flow, augmentation and compression are seen. Impression: 1. Nothing is appreciated to indicate deep venous thrombosis within the left lower extremity or within the right common femoral vein. Diagnostic code #2 I agree with preliminary report from [facility], finalized on 06/26/21, 8:30 PM CDT, code 1
[2021-07-07] MEDS: Furosemide 40 MG Tab PO SCH (10:05)
[2021-07-07] MEDS: Insulin Glarg,Human.Rec.Analog 100 Unit/ML SUBCUT SCH (10:05)
--- NOTE | 2021-07-07 12:38 | PCM.PN ---
- General Info Date of Service: 07/07/21 Admission Dx/Problem (Free Text): Admission Diagnosis/Problem Admission Diagnosis/Problem Cellulitis Subjective Update: Erythema in leg improving endorses leg pain US negative for DVT denies diarrhea - Review of Systems General: Reports: Weakness HEENT: Reports: No Symptoms Pulmonary: Reports: No Symptoms Cardiovascular: Reports: No Symptoms Gastrointestinal: Reports: No Symptoms Musculoskeletal: Reports: Leg Pain Neurological: Reports: No Symptoms Psychiatric: Reports: No Symptoms - Patient Data Vitals - Most Recent: Last Vital Signs Temp 98.4 F 07/07/21 11:13 Pulse 86 07/07/21 11:13 Resp 18 07/07/21 11:13 BP 100/54 L 07/07/21 11:13 Pulse Ox 90 L 07/07/21 11:13 Weight - Most Recent: 212 lb 14.4 oz I&O - Last 24 Hours: Intake & Output 07/06/21 07/07/21 07/07/21 22:59 06:59 14:59 Intake Total 1022 Balance 1022 Lab Results Last 24 Hours: Laboratory Results - last 24 hr 07/06/21 07/06/21 07/06/21 Range/Units 15:38 15:38 15:38 WBC 16.79 H (3.98-10.04) K/mm3 RBC 4.50 (3.98-5.22) M/mm3 Hgb 12.1 (11.2-15.7) gm/dl Hct 38.0 (34.1-44.9) % MCV 84.4 (79.4-94.8) fl MCH 26.9 (25.6-32.2) pg MCHC 31.8 L (32.2-35.5) g/dl RDW Std Deviation 43.0 (36.4-46.3) fL Plt Count 256 (182-369) K/mm3 MPV 9.7 (9.4-12.3) fl Neut % (Auto) 86.7 H (34.0-71.1) % Lymph % (Auto) 8.8 L (19.3-51.7) % [place] % (Auto) 4.0 L (4.7-12.5) % Eos % (Auto) 0.2 L (0.7-5.8) Baso % (Auto) 0.1 (0.1-1.2) % Neut # (Auto) 14.56 H (1.56-6.13) K/mm3 Lymph # (Auto) 1.47 (1.18-3.74) K/mm3 [place] # (Auto) 0.67 H (0.24-0.36) K/mm3 Eos # (Auto) 0.03 L (0.04-0.36) K/mm3 Baso # (Auto) 0.02 (0.01-0.08) K/mm3 Manual Slide Review Abnormal smear Sodium 134 L D (136-145) mEq/L Potassium 3.4 L (3.5-5.1) mEq/L Chloride 97 L (98-107) mEq/L Carbon Dioxide 29 (21-32) mEq/L Anion Gap 11.4 (5-15) BUN 27 H (7-18) mg/dL Creatinine 1.5 H (0.55-1.02) mg/dL Est Cr Clr Drug Dosing 40.72 mL/min Estimated GFR (MDRD) 36 (>60) mL/min BUN/Creatinine Ratio 18.0 (14-18) Glucose 217 H (70-99) mg/dL POC Glucose (70-99) mg/dL Lactic Acid 2.0 (0.4-2.0) mmol/L Calcium 8.7 (8.5-10.1) mg/dL Total Bilirubin 0.6 (0.2-1.0) mg/dL AST 12 L (15-37) U/L ALT 23 (14-59) U/L Alkaline Phosphatase 137 H (46-116) U/L C-Reactive Protein (<1.0) mg/dL Total Protein 7.9 (6.4-8.2) g/dl Albumin 2.6 L (3.4-5.0) g/dl Globulin 5.3 gm/dL Albumin/Globulin Ratio 0.5 L (1-2) SARS-CoV-2 RNA (TODD) (NEGATIVE) 07/06/21 07/06/21 07/06/21 Range/Units 15:38 15:55 21:35 WBC (3.98-10.04) K/mm3 RBC (3.98-5.22) M/mm3 Hgb (11.2-15.7) gm/dl Hct (34.1-44.9) % MCV (79.4-94.8) fl MCH (25.6-32.2) pg MCHC (32.2-35.5) g/dl RDW Std Deviation (36.4-46.3) fL Plt Count (182-369) K/mm3 MPV (9.4-12.3) fl Neut % (Auto) (34.0-71.1) % Lymph % (Auto) (19.3-51.7) % [place] % (Auto) (4.7-12.5) % Eos % (Auto) (0.7-5.8) Baso % (Auto) (0.1-1.2) % Neut # (Auto) (1.56-6.13) K/mm3 Lymph # (Auto) (1.18-3.74) K/mm3 [place] # (Auto) (0.24-0.36) K/mm3 Eos # (Auto) (0.04-0.36) K/mm3 Baso # (Auto) (0.01-0.08) K/mm3 Manual Slide Review Sodium (136-145) mEq/L Potassium (3.5-5.1) mEq/L Chloride (98-107) mEq/L Carbon Dioxide (21-32) mEq/L Anion Gap (5-15) BUN (7-18) mg/dL Creatinine (0.55-1.02) mg/dL Est Cr Clr Drug Dosing mL/min Estimated GFR (MDRD) (>60) mL/min BUN/Creatinine Ratio (14-18) Glucose (70-99) mg/dL POC Glucose 272 H (70-99) mg/dL Lactic Acid (0.4-2.0) mmol/L Calcium (8.5-10.1) mg/dL Total Bilirubin (0.2-1.0) mg/dL AST (15-37) U/L ALT (14-59) U/L Alkaline Phosphatase (46-116) U/L C-Reactive Protein 37.9 H* (<1.0) mg/dL Total Protein (6.4-8.2) g/dl Albumin (3.4-5.0) g/dl Globulin gm/dL Albumin/Globulin Ratio (1-2) SARS-CoV-2 RNA (TODD) Negative (NEGATIVE) 07/07/21 07/07/21 07/07/21 Range/Units 05:50 05:50 05:50 WBC 11.33 H (3.98-10.04) K/mm3 RBC 3.75 L (3.98-5.22) M/mm3 Hgb 10.1 L D (11.2-15.7) gm/dl Hct 32.2 L (34.1-44.9) % MCV 85.9 (79.4-94.8) fl MCH 26.9 (25.6-32.2) pg MCHC 31.4 L (32.2-35.5) g/dl RDW Std Deviation 43.1 (36.4-46.3) fL Plt Count 219 (182-369) K/mm3 MPV 9.5 (9.4-12.3) fl Neut % (Auto) 82.7 H (34.0-71.1) % Lymph % (Auto) 10.4 L (19.3-51.7) % [place] % (Auto) 5.0 (4.7-12.5) % Eos % (Auto) 1.5 (0.7-5.8) Baso % (Auto) 0.2 (0.1-1.2) % Neut # (Auto) 9.37 H (1.56-6.13) K/mm3 Lymph # (Auto) 1.18 (1.18-3.74) K/mm3 [place] # (Auto) 0.57 H (0.24-0.36) K/mm3 Eos # (Auto) 0.17 (0.04-0.36) K/mm3 Baso # (Auto) 0.02 (0.01-0.08) K/mm3 Manual Slide Review Sodium 138 (136-145) mEq/L Potassium 3.7 (3.5-5.1) mEq/L Chloride 103 (98-107) mEq/L Carbon Dioxide 29 (21-32) mEq/L Anion Gap 9.7 (5-15) BUN 22 H (7-18) mg/dL Creatinine 1.2 H (0.55-1.02) mg/dL Est Cr Clr Drug Dosing 50.90 mL/min Estimated GFR (MDRD) 46 (>60) mL/min BUN/Creatinine Ratio 18.3 H (14-18) Glucose 153 H (70-99) mg/dL POC Glucose (70-99) mg/dL Lactic Acid 0.9 (0.4-2.0) mmol/L Calcium 8.2 L (8.5-10.1) mg/dL Total Bilirubin (0.2-1.0) mg/dL AST (15-37) U/L ALT (14-59) U/L Alkaline Phosphatase (46-116) U/L C-Reactive Protein 29.6 H* (<1.0) mg/dL Total Protein (6.4-8.2) g/dl Albumin (3.4-5.0) g/dl Globulin gm/dL Albumin/Globulin Ratio (1-2) SARS-CoV-2 RNA (TODD) (NEGATIVE) 07/07/21 07/07/21 Range/Units 06:33 11:11 WBC (3.98-10.04) K/mm3 RBC (3.98-5.22) M/mm3 Hgb (11.2-15.7) gm/dl Hct (34.1-44.9) % MCV (79.4-94.8) fl MCH (25.6-32.2) pg MCHC (32.2-35.5) g/dl RDW Std Deviation (36.4-46.3) fL Plt Count (182-369) K/mm3 MPV (9.4-12.3) fl Neut % (Auto) (34.0-71.1) % Lymph % (Auto) (19.3-51.7) % [place] % (Auto) (4.7-12.5) % Eos % (Auto) (0.7-5.8) Baso % (Auto) (0.1-1.2) % Neut # (Auto) (1.56-6.13) K/mm3 Lymph # (Auto) (1.18-3.74) K/mm3 [place] # (Auto) (0.24-0.36) K/mm3 Eos # (Auto) (0.04-0.36) K/mm3 Baso # (Auto) (0.01-0.08) K/mm3 Manual Slide Review Sodium (136-145) mEq/L Potassium (3.5-5.1) mEq/L Chloride (98-107) mEq/L Carbon Dioxide (21-32) mEq/L Anion Gap (5-15) BUN (7-18) mg/dL Creatinine (0.55-1.02) mg/dL Est Cr Clr Drug Dosing mL/min Estimated GFR (MDRD) (>60) mL/min BUN/Creatinine Ratio (14-18) Glucose (70-99) mg/dL POC Glucose 159 H 199 H (70-99) mg/dL Lactic Acid (0.4-2.0) mmol/L Calcium (8.5-10.1) mg/dL Total Bilirubin (0.2-1.0) mg/dL AST (15-37) U/L ALT (14-59) U/L Alkaline Phosphatase (46-116) U/L C-Reactive Protein (<1.0) mg/dL Total Protein (6.4-8.2) g/dl Albumin (3.4-5.0) g/dl Globulin gm/dL Albumin/Globulin Ratio (1-2) SARS-CoV-2 RNA (TODD) (NEGATIVE) Med Orders - Current: Current Medications Acetaminophen (Acetaminophen 325 Mg Tab) 650 mg PO Q4H PRN PRN Reason: Pain (Mild 1-3)/fever Calcium Carbonate/Glycine (Calcium Carbonate 500 Mg Tab.Chew) 750 mg PO TID PRN PRN Reason: Heartburn Last Admin: 07/06/21 21:45 Dose: 750 mg Documented by: Furosemide (Furosemide 40 Mg Tab) 40 mg PO DAILY [facility] Last Admin: 07/07/21 10:05 Dose: 40 mg Documented by: Heparin Sodium (Porcine) (Heparin Sodium 5,000 Units/Ml Vial) 5,000 units SUB CUT Q8H [facility] Last Admin: 07/07/21 08:30 Dose: 5,000 units Documented by: Vancomycin HCl 1 gm/Vancomycin HCl 250 mg/ Sodium Chloride 250 mls @ 166.667 mls/hr IV Q24H [facility] Insulin Glargine (Insulin Glarg,Human.Rec.Analog 100 Unit/Ml) 50 unit SUBCUT DAILY [facility] Last Admin: 07/07/21 10:05 Dose: 50 units Documented by: Insulin Human Lispro (Insulin Lispro 100 Unit/Ml 10 Ml Vial) 0 unit SUBCUT QI [facility]; Protocol Last Admin: 07/07/21 11:40 Dose: 2 units Documented by: Ondansetron HCl (Ondansetron 4 Mg/2 Ml Sdv) 4 mg IV Q4H PRN PRN Reason: Nausea/Vomiting Oxycodone HCl (Oxycodone 5 Mg Tab) 5 mg PO Q4H PRN PRN Reason: Pain (moderate 4-6) Sodium Chloride (Sodium Chloride 0.9% 10 Ml Syringe) 10 ml FLUSH ASDIRECTED PRN PRN Reason: Keep Vein Open Last Admin: 07/06/21 16:05 Dose: 10 ml Documented by: Vancomycin HCl (Pharmacy To Dose - Vancomycin) 0 dose .XX ASDIRECTED PRN PRN Reason: RX TO DOSE VANCOMYCIN Discontinued Medications Hydromorphone HCl (Hydromorphone 0.5 Mg/0.5 Ml Syringe) 0.5 mg IVPUSH ONETIME ONE Stop: 07/06/21 17:23 Last Admin: 07/06/21 17:29 Dose: 0.5 mg Documented by: Vancomycin HCl 2 gm/ Sodium (Chloride) 250 mls @ 250 mls/hr IV ONETIME ONE Stop: 07/06/21 16:16 Last Admin: 07/06/21 16:04 Dose: 250 mls/hr Documented by: Lactated Ringer's (Ringers, Lactated) 1,000 mls @ 75 mls/hr IV ASDIRECTED RACHEAL Last Admin: 07/06/21 19:43 Dose: 75 mls/hr Documented by: Potassium Chloride (Potassium Chloride 20 Meq Tab.Er) 40 meq PO ONETIME ONE Stop: 07/06/21 18:34 Last Admin: 07/06/21 18:56 Dose: 40 meq Documented by: - Exam General: Alert, Oriented HEENT: EOMI, Mucous Membr. Moist/[place] Neck: Supple Lungs: Clear to Auscultation, Normal Respiratory Effort Cardiovascular: Regular Rate, Regular Rhythm GI/Abdominal Exam: Soft, Non-Tender, No Distention Extremities: Other (erythema of left lower extremity improved, warm to touch; 2- 3+ edema) Neurological: No New Focal Deficit Psy/Mental Status: Alert, Normal Affect - Patient Data Lab Results Last 24 hrs: Laboratory Results - last 24 hr 07/06/21 07/06/21 07/06/21 Range/Units 15:38 15:38 15:38 WBC 16.79 H (3.98-10.04) K/mm3 RBC 4.50 (3.98-5.22) M/mm3 Hgb 12.1 (11.2-15.7) gm/dl Hct 38.0 (34.1-44.9) % MCV 84.4 (79.4-94.8) fl MCH 26.9 (25.6-32.2) pg MCHC 31.8 L (32.2-35.5) g/dl RDW Std Deviation 43.0 (36.4-46.3) fL Plt Count 256 (182-369) K/mm3 MPV 9.7 (9.4-12.3) fl Neut % (Auto) 86.7 H (34.0-71.1) % Lymph % (Auto) 8.8 L (19.3-51.7) % [place] % (Auto) 4.0 L (4.7-12.5) % Eos % (Auto) 0.2 L (0.7-5.8) Baso % (Auto) 0.1 (0.1-1.2) % Neut # (Auto) 14.56 H (1.56-6.13) K/mm3 Lymph # (Auto) 1.47 (1.18-3.74) K/mm3 [place] # (Auto) 0.67 H (0.24-0.36) K/mm3 Eos # (Auto) 0.03 L (0.04-0.36) K/mm3 Baso # (Auto) 0.02 (0.01-0.08) K/mm3 Manual Slide Review Abnormal smear Sodium 134 L D (136-145) mEq/L Potassium 3.4 L (3.5-5.1) mEq/L Chloride 97 L (98-107) mEq/L Carbon Dioxide 29 (21-32) mEq/L Anion Gap 11.4 (5-15) BUN 27 H (7-18) mg/dL Creatinine 1.5 H (0.55-1.02) mg/dL Est Cr Clr Drug Dosing 40.72 mL/min Estimated GFR (MDRD) 36 (>60) mL/min BUN/Creatinine Ratio 18.0 (14-18) Glucose 217 H (70-99) mg/dL POC Glucose (70-99) mg/dL Lactic Acid 2.0 (0.4-2.0) mmol/L Calcium 8.7 (8.5-10.1) mg/dL Total Bilirubin 0.6 (0.2-1.0) mg/dL AST 12 L (15-37) U/L ALT 23 (14-59) U/L Alkaline Phosphatase 137 H (46-116) U/L C-Reactive Protein (<1.0) mg/dL Total Protein 7.9 (6.4-8.2) g/dl Albumin 2.6 L (3.4-5.0) g/dl Globulin 5.3 gm/dL Albumin/Globulin Ratio 0.5 L (1-2) SARS-CoV-2 RNA (TODD) (NEGATIVE) 07/06/21 07/06/21 07/06/21 Range/Units 15:38 15:55 21:35 WBC (3.98-10.04) K/mm3 RBC (3.98-5.22) M/mm3 Hgb (11.2-15.7) gm/dl Hct (34.1-44.9) % MCV (79.4-94.8) fl MCH (25.6-32.2) pg MCHC (32.2-35.5) g/dl RDW Std Deviation (36.4-46.3) fL Plt Count (182-369) K/mm3 MPV (9.4-12.3) fl Neut % (Auto) (34.0-71.1) % Lymph % (Auto) (19.3-51.7) % [place] % (Auto) (4.7-12.5) % Eos % (Auto) (0.7-5.8) Baso % (Auto) (0.1-1.2) % Neut # (Auto) (1.56-6.13) K/mm3 Lymph # (Auto) (1.18-3.74) K/mm3 [place] # (Auto) (0.24-0.36) K/mm3 Eos # (Auto) (0.04-0.36) K/mm3 Baso # (Auto) (0.01-0.08) K/mm3 Manual Slide Review Sodium (136-145) mEq/L Potassium (3.5-5.1) mEq/L Chloride (98-107) mEq/L Carbon Dioxide (21-32) mEq/L Anion Gap (5-15) BUN (7-18) mg/dL Creatinine (0.55-1.02) mg/dL Est Cr Clr Drug Dosing mL/min Estimated GFR (MDRD) (>60) mL/min BUN/Creatinine Ratio (14-18) Glucose (70-99) mg/dL POC Glucose 272 H (70-99) mg/dL Lactic Acid (0.4-2.0) mmol/L Calcium (8.5-10.1) mg/dL Total Bilirubin (0.2-1.0) mg/dL AST (15-37) U/L ALT (14-59) U/L Alkaline Phosphatase (46-116) U/L C-Reactive Protein 37.9 H* (<1.0) mg/dL Total Protein (6.4-8.2) g/dl Albumin (3.4-5.0) g/dl Globulin gm/dL Albumin/Globulin Ratio (1-2) SARS-CoV-2 RNA (TODD) Negative (NEGATIVE) 07/07/21 07/07/21 07/07/21 Range/Units 05:50 05:50 05:50 WBC 11.33 H (3.98-10.04) K/mm3 RBC 3.75 L (3.98-5.22) M/mm3 Hgb 10.1 L D (11.2-15.7) gm/dl Hct 32.2 L (34.1-44.9) % MCV 85.9 (79.4-94.8) fl MCH 26.9 (25.6-32.2) pg MCHC 31.4 L (32.2-35.5) g/dl RDW Std Deviation 43.1 (36.4-46.3) fL Plt Count 219 (182-369) K/mm3 MPV 9.5 (9.4-12.3) fl Neut % (Auto) 82.7 H (34.0-71.1) % Lymph % (Auto) 10.4 L (19.3-51.7) % [place] % (Auto) 5.0 (4.7-12.5) % Eos % (Auto) 1.5 (0.7-5.8) Baso % (Auto) 0.2 (0.1-1.2) % Neut # (Auto) 9.37 H (1.56-6.13) K/mm3 Lymph # (Auto) 1.18 (1.18-3.74) K/mm3 [place] # (Auto) 0.57 H (0.24-0.36) K/mm3 Eos # (Auto) 0.17 (0.04-0.36) K/mm3 Baso # (Auto) 0.02 (0.01-0.08) K/mm3 Manual Slide Review Sodium 138 (136-145) mEq/L Potassium 3.7 (3.5-5.1) mEq/L Chloride 103 (98-107) mEq/L Carbon Dioxide 29 (21-32) mEq/L Anion Gap 9.7 (5-15) BUN 22 H (7-18) mg/dL Creatinine 1.2 H (0.55-1.02) mg/dL Est Cr Clr Drug Dosing 50.90 mL/min Estimated GFR (MDRD) 46 (>60) mL/min BUN/Creatinine Ratio 18.3 H (14-18) Glucose 153 H (70-99) mg/dL POC Glucose (70-99) mg/dL Lactic Acid 0.9 (0.4-2.0) mmol/L Calcium 8.2 L (8.5-10.1) mg/dL Total Bilirubin (0.2-1.0) mg/dL AST (15-37) U/L ALT (14-59) U/L Alkaline Phosphatase (46-116) U/L C-Reactive Protein 29.6 H* (<1.0) mg/dL Total Protein (6.4-8.2) g/dl Albumin (3.4-5.0) g/dl Globulin gm/dL Albumin/Globulin Ratio (1-2) SARS-CoV-2 RNA (TODD) (NEGATIVE) 07/07/21 07/07/21 Range/Units 06:33 11:11 WBC (3.98-10.04) K/mm3 RBC (3.98-5.22) M/mm3 Hgb (11.2-15.7) gm/dl Hct (34.1-44.9) % MCV (79.4-94.8) fl MCH (25.6-32.2) pg MCHC (32.2-35.5) g/dl RDW Std Deviation (36.4-46.3) fL Plt Count (182-369) K/mm3 MPV (9.4-12.3) fl Neut % (Auto) (34.0-71.1) % Lymph % (Auto) (19.3-51.7) % [place] % (Auto) (4.7-12.5) % Eos % (Auto) (0.7-5.8) Baso % (Auto) (0.1-1.2) % Neut # (Auto) (1.56-6.13) K/mm3 Lymph # (Auto) (1.18-3.74) K/mm3 [place] # (Auto) (0.24-0.36) K/mm3 Eos # (Auto) (0.04-0.36) K/mm3 Baso # (Auto) (0.01-0.08) K/mm3 Manual Slide Review Sodium (136-145) mEq/L Potassium (3.5-5.1) mEq/L Chloride (98-107) mEq/L Carbon Dioxide (21-32) mEq/L Anion Gap (5-15) BUN (7-18) mg/dL Creatinine (0.55-1.02) mg/dL Est Cr Clr Drug Dosing mL/min Estimated GFR (MDRD) (>60) mL/min BUN/Creatinine Ratio (14-18) Glucose (70-99) mg/dL POC Glucose 159 H 199 H (70-99) mg/dL Lactic Acid (0.4-2.0) mmol/L Calcium (8.5-10.1) mg/dL Total Bilirubin (0.2-1.0) mg/dL AST (15-37) U/L ALT (14-59) U/L Alkaline Phosphatase (46-116) U/L C-Reactive Protein (<1.0) mg/dL Total Protein (6.4-8.2) g/dl Albumin (3.4-5.0) g/dl Globulin gm/dL Albumin/Globulin Ratio (1-2) SARS-CoV-2 RNA (TODD) (NEGATIVE) Result Diagrams: 07/07/21 05:50 07/07/21 05:50 Sepsis Event Note - Evaluation Sepsis Screening Result: Possible Sepsis Risk - Focused Exam Vital Signs: Vital Signs Temp Pulse Resp BP Pulse Ox 07/07/21 11:13 98.4 F 86 18 100/54 L 90 L 07/07/21 08:17 98.4 F 95 14 114/44 L 90 L 07/07/21 04:03 98.6 F 98 18 107/48 L 91 L 07/07/21 00:44 98.2 F 95 18 104/55 L 94 L - Problem List Review Problem List Initiated/Reviewed/Updated: Yes - My Orders Last 24 Hours: My Active Orders 07/06/21 Dinner Consistent Carbohydrate Diet [DIET] 07/06/21 17:27 Height and Weight [RC] 06 Oxygen Therapy [RC] PRN Up With Assistance [RC] BID VTE/DVT Education [RC] DAILY Vital Signs [RC] Q4HR Acetaminophen [TylenoL] 650 mg PO Q4H PRN Ondansetron [Zofran] 4 mg IV Q4H PRN oxyCODONE 5 mg PO Q4H PRN Resuscitation Status Routine 07/06/21 17:30 Heparin Sodium 5,000 units SUBCUT Q8H 07/06/21 17:31 Cardiac Monitoring [RC] CONTINUOUS Intake and Output [RC] 04,16 07/06/21 17:37 Blood Glucose Check, Bedside [RC] QIDACANDBED 07/06/21 17:45 Pharmacy to Dose - Vancomycin 0 dose .XX ASDIRECTED PRN 07/06/21 18:08 Patient Status [ADT] Routine 07/06/21 20:25 Calcium Carbonate [Tums] 750 mg PO TID PRN 07/06/21 22:00 Insulin Lispro [HumaLOG] See Protocol SUBCUT QIDACANDBED 07/07/21 02:16 Elevate Extremity [RC] BID 07/07/21 09:15 Furosemide [Lasix] 40 mg PO DAILY Insulin Glarg,Human.Rec.Analog [LantUS] 50 unit SUBCUT DAILY 07/07/21 16:00 Vancomycin 1 gm Vancomycin 250 mg Sodium Chloride 0.9% [Normal Saline] 250 ml IV Q24H - Plan Plan:: This is a 55F with PMhx noted below presenting for evaluation of left lower extremity edema. The patient has had 2 days of worsening left lower extremity erythema and edema. She denies previous history of DVT. In the ED. Blood cultures were obtained. She was started on IV vancomycin and admitted for further evaluation. 1. Sepsis secondary to Cellulitis of left lower extremity; tachycardia; +Leukocytosis 2. Hx of Type II DM 3. Hypovolemic hyponatremia; sodium 134 on admission 4. Hypokalemia 5. Acute kidney injury; Cr 1.5 on admission Plan -continue vanco; pharm to dose -resume lasix today -stop IVF -potassium replacement -elevate leg -doppler venous US negative for DVT -follow CRP; WBC, Cr, CRP improving from yesterday Code-DNR/DNI DVT ppx-heparin subq
[2021-07-07] MEDS: Calcium Carbonate 500 MG Tab.Chew PO PRN (14:35)
[2021-07-07] MEDS: Vancomycin 1 GM, Vancomycin 250 MG in Sodium Chloride 0.9% 250 ML IV SCH (16:16)
[2021-07-07] MEDS: oxyCODONE 5 MG Tab PO PRN ×2 (16:32→22:30)
[2021-07-08] MEDS: Heparin Sodium 5,000 Units/ML Vial SUBCUT SCH ×3 (00:47→16:55)
[2021-07-08] MEDS: Insulin Lispro 100 UNIT/ML 10 ML Vial SUBCUT SCH ×4 (07:24→21:10)
--- NOTE | 2021-07-08 09:40 | PCM.PN ---
- General Info Date of Service: 07/08/21 Admission Dx/Problem (Free Text): Admission Diagnosis/Problem Admission Diagnosis/Problem left lower extremity cellulitis/erysipelas Subjective Update: No acute events overnight. Nursing concerns for spread of erythema beyond previously marked borders. Has developed significant blistering. Denies any fever or constitutional symptoms. No pain. No new specific patient complaints. - Patient Data Vitals - Most Recent: Last Vital Signs Temp 98.2 F 07/08/21 08:06 Pulse 93 07/08/21 08:06 Resp 16 07/08/21 08:06 BP 105/54 L 07/08/21 08:06 Pulse Ox 91 L 07/08/21 08:06 Weight - Most Recent: 213 lb 1.6 oz I&O - Last 24 Hours: Intake & Output 07/07/21 07/08/21 07/08/21 22:59 06:59 14:59 Intake Total 1070 1000 Output Total 100 100 Balance 970 900 Lab Results Last 24 Hours: Laboratory Results - last 24 hr 07/07/21 07/07/21 07/07/21 Range/Units 11:11 16:13 20:33 WBC (3.98-10.04) K/mm3 RBC (3.98-5.22) M/mm3 Hgb (11.2-15.7) gm/dl Hct (34.1-44.9) % MCV (79.4-94.8) fl MCH (25.6-32.2) pg MCHC (32.2-35.5) g/dl RDW Std Deviation (36.4-46.3) fL Plt Count (182-369) K/mm3 MPV (9.4-12.3) fl Sodium (136-145) mEq/L Potassium (3.5-5.1) mEq/L Chloride (98-107) mEq/L Carbon Dioxide (21-32) mEq/L Anion Gap (5-15) BUN (7-18) mg/dL Creatinine (0.55-1.02) mg/dL Est Cr Clr Drug Dosing mL/min Estimated GFR (MDRD) (>60) mL/min BUN/Creatinine Ratio (14-18) Glucose (70-99) mg/dL POC Glucose 199 H 147 H 211 H (70-99) mg/dL Calcium (8.5-10.1) mg/dL C-Reactive Protein (<1.0) mg/dL 07/08/21 07/08/21 07/08/21 Range/Units 06:04 06:04 06:35 WBC 8.94 (3.98-10.04) K/mm3 RBC 3.82 L (3.98-5.22) M/mm3 Hgb 10.1 L (11.2-15.7) gm/dl Hct 32.8 L (34.1-44.9) % MCV 85.9 (79.4-94.8) fl MCH 26.4 (25.6-32.2) pg MCHC 30.8 L (32.2-35.5) g/dl RDW Std Deviation 42.7 (36.4-46.3) fL Plt Count 235 (182-369) K/mm3 MPV 9.6 (9.4-12.3) fl Sodium 138 (136-145) mEq/L Potassium 3.5 (3.5-5.1) mEq/L Chloride 102 (98-107) mEq/L Carbon Dioxide 27 (21-32) mEq/L Anion Gap 12.5 (5-15) BUN 17 (7-18) mg/dL Creatinine 1.2 H (0.55-1.02) mg/dL Est Cr Clr Drug Dosing 50.90 mL/min Estimated GFR (MDRD) 46 (>60) mL/min BUN/Creatinine Ratio 14.2 (14-18) Glucose 123 H (70-99) mg/dL POC Glucose 118 H (70-99) mg/dL Calcium 7.8 L (8.5-10.1) mg/dL C-Reactive Protein 21.7 H* (<1.0) mg/dL Jose Results Last 24 Hours: Microbiology 07/06/21 15:47 Blood Culture - Preliminary Blood - Venous - Lab Draw 07/06/21 15:38 Blood Culture - Preliminary Blood - Venous Med Orders - Current: Current Medications Acetaminophen (Acetaminophen 325 Mg Tab) 650 mg PO Q4H PRN PRN Reason: Pain (Mild 1-3)/fever Calcium Carbonate/Glycine (Calcium Carbonate 500 Mg Tab.Chew) 750 mg PO TID PRN PRN Reason: Heartburn Last Admin: 07/07/21 14:35 Dose: 750 mg Documented by: Furosemide (Furosemide 40 Mg Tab) 40 mg PO DAILY [facility] Last Admin: 07/07/21 10:05 Dose: 40 mg Documented by: Heparin Sodium (Porcine) (Heparin Sodium 5,000 Units/Ml Vial) 5,000 units SUBCUT Q8H [facility] Last Admin: 07/08/21 00:47 Dose: 5,000 units Documented by: Vancomycin HCl 1 gm/Vancomycin HCl 250 mg/ Sodium Chloride 250 mls @ 166.667 mls/hr IV Q24H [facility] Last Admin: 07/07/21 16:16 Dose: 166.667 mls/hr Documented by: Ceftriaxone Sodium 1 gm/ (Sodium Chloride) 100 mls @ 200 mls/hr IV Q12H [facility] Insulin Glargine (Insulin Glarg,Human.Rec.Analog 100 Unit/Ml) 50 unit SUBCUT DAILY [facility] Last Admin: 07/07/21 10:05 Dose: 50 units Documented by: Insulin Human Lispro (Insulin Lispro 100 Unit/Ml 10 Ml Vial) 0 unit SUBCUT QIDACANDBED [facility]; Protocol Last Admin: 07/08/21 07:24 Dose: Not Given Documented by: Ondansetron HCl (Ondansetron 4 Mg/2 Ml Sdv) 4 mg IV Q4H PRN PRN Reason: Nausea/Vomiting Oxycodone HCl (Oxycodone 5 Mg Tab) 5 mg PO Q4H PRN PRN Reason: Pain (moderate 4-6) Last Admin: 07/07/21 22:30 Dose: 5 mg Documented by: Sodium Chloride (Sodium Chloride 0.9% 10 Ml Syringe) 10 ml FLUSH ASDIRECTED PRN PRN Reason: Keep Vein Open Last Admin: 07/06/21 16:05 Dose: 10 ml Documented by: Vancomycin HCl (Pharmacy To Dose - Vancomycin) 0 dose .XX ASDIRECTED PRN PRN Reason: RX TO DOSE VANCOMYCIN Discontinued Medications Hydromorphone HCl (Hydromorphone 0.5 Mg/0.5 Ml Syringe) 0.5 mg IVPUSH ONETIME ONE Stop: 07/06/21 17:23 Last Admin: 07/06/21 17:29 Dose: 0.5 mg Documented by: Vancomycin HCl 2 gm/ Sodium (Chloride) 250 mls @ 250 mls/hr IV ONETIME ONE Stop: 07/06/21 16:16 Last Admin: 07/06/21 16:04 Dose: 250 mls/hr Documented by: Lactated Ringer's (Ringers, Lactated) 1,000 mls @ 75 mls/hr IV ASDIRECTED RACHEAL Last Admin: 07/06/21 19:43 Dose: 75 mls/hr Documented by: Potassium Chloride (Potassium Chloride 20 Meq Tab.Er) 40 meq PO ONETIME ONE Stop: 07/06/21 18:34 Last Admin: 07/06/21 18:56 Dose: 40 meq Documented by: - Exam General: Alert, Cooperative, No Acute Distress Lungs: Clear to Auscultation, Normal Respiratory Effort Cardiovascular: Regular Rate, Regular Rhythm GI/Abdominal Exam: Normal Bowel Sounds, Soft, Non-Tender Extremities: Non-Tender, Pedal Edema, Redness Skin: Other (Significant erythema without induration or fluctuant mass noted on palpation. Mild calor. All encompassing the left lower extremity below the knee and extending beyond previously marked borders. Now encompasses the entire foot as well. Proximal spread beyond borders as well.) Neurological: No New Focal Deficit Psy/Mental Status: Normal Mood - Patient Data Lab Results Last 24 hrs: Laboratory Results - last 24 hr 07/07/21 07/07/21 07/07/21 Range/Units 11:11 16:13 20:33 WBC (3.98-10.04) K/mm3 RBC (3.98-5.22) M/mm3 Hgb (11.2-15.7) gm/dl Hct (34.1-44.9) % MCV (79.4-94.8) fl MCH (25.6-32.2) pg MCHC (32.2-35.5) g/dl RDW Std Deviation (36.4-46.3) fL Plt Count (182-369) K/mm3 MPV (9.4-12.3) fl Sodium (136-145) mEq/L Potassium (3.5-5.1) mEq/L Chloride (98-107) mEq/L Carbon Dioxide (21-32) mEq/L Anion Gap (5-15) BUN (7-18) mg/dL Creatinine (0.55-1.02) mg/dL Est Cr Clr Drug Dosing mL/min Estimated GFR (MDRD) (>60) mL/min BUN/Creatinine Ratio (14-18) Glucose (70-99) mg/dL POC Glucose 199 H 147 H 211 H (70-99) mg/dL Calcium (8.5-10.1) mg/dL C-Reactive Protein (<1.0) mg/dL 07/08/21 07/08/21 07/08/21 Range/Units 06:04 06:04 06:35 WBC 8.94 (3.98-10.04) K/mm3 RBC 3.82 L (3.98-5.22) M/mm3 Hgb 10.1 L (11.2-15.7) gm/dl Hct 32.8 L (34.1-44.9) % MCV 85.9 (79.4-94.8) fl MCH 26.4 (25.6-32.2) pg MCHC 30.8 L (32.2-35.5) g/dl RDW Std Deviation 42.7 (36.4-46.3) fL Plt Count 235 (182-369) K/mm3 MPV 9.6 (9.4-12.3) fl Sodium 138 (136-145) mEq/L Potassium 3.5 (3.5-5.1) mEq/L Chloride 102 (98-107) mEq/L Carbon Dioxide 27 (21-32) mEq/L Anion Gap 12.5 (5-15) BUN 17 (7-18) mg/dL Creatinine 1.2 H (0.55-1.02) mg/dL Est Cr Clr Drug Dosing 50.90 mL/min Estimated GFR (MDRD) 46 (>60) mL/min BUN/Creatinine Ratio 14.2 (14-18) Glucose 123 H (70-99) mg/dL POC Glucose 118 H (70-99) mg/dL Calcium 7.8 L (8.5-10.1) mg/dL C-Reactive Protein 21.7 H* (<1.0) mg/dL Result Diagrams: 07/08/21 06:04 07/08/21 06:04 Jose Results Last 24 hrs: Microbiology 07/06/21 15:47 Blood Culture - Preliminary Blood - Venous - Lab Draw 07/06/21 15:38 Blood Culture - Preliminary Blood - Venous Sepsis Event Note - Evaluation Sepsis Screening Result: Possible Sepsis Risk - Focused Exam Vital Signs: Vital Signs Temp Pulse Resp BP Pulse Ox 07/08/21 08:06 98.2 F 93 16 105/54 L 91 L 07/08/21 03:49 98.8 F 88 20 107/43 L 91 L 07/08/21 00:41 98.1 F 90 18 112/55 L 93 L 07/07/21 22:24 98.4 F 91 18 113/59 L 94 L - Problem List Review Problem List Initiated/Reviewed/Updated: Yes - My Orders Last 24 Hours: My Active Orders 07/08/21 09:15 cefTRIAXone [Rocephin] 1 gm Sodium Chloride 0.9% [Normal Saline] 100 ml IV Q12H - Plan Plan:: This is a 55F with PMhx noted below presenting for evaluation of left lower extremity edema. The patient has had 2 days of worsening left lower extremity erythema and edema. She denies previous history of DVT. In the ED. Blood cultures were obtained. She was started on IV vancomycin and admitted for further evaluation. 1. Sepsis secondary to Cellulitis of left lower extremity; tachycardia; +Leukocytosis 2. Hx of Type II DM 3. Hypovolemic hyponatremia; sodium 134 on admission 4. Hypokalemia 5. Acute kidney injury; Cr 1.5 on admission Plan -continue Vancomycin; pharm to dose -Addition of Rocephin for further empiric coverage in an immunocompromise individual with diabetes -PT consultation for lancing of the wounds and continued basic wound care. Aerobic and anaerobic cultures have been sent. -doppler venous US negative for DVT -Intermittent check of labs. Code-DNR/DNI DVT ppx-heparin subq
[2021-07-08] MEDS: Furosemide 40 MG Tab PO SCH (09:41)
[2021-07-08] MEDS: cefTRIAXone 1 GM in Sodium Chloride 0.9% 100 ML IV SCH ×2 (09:42→21:05)
[2021-07-08] MEDS: Insulin Glarg,Human.Rec.Analog 100 Unit/ML SUBCUT SCH ×2 (09:42→10:55)
[2021-07-08] MEDS: Calcium Carbonate 500 MG Tab.Chew PO PRN ×2 (09:54→17:43)
[2021-07-08] MEDS ORDERED: Insulin Glarg,Human.Rec.Analog 100 Unit/ML SUBCUT SCH (10:42)
[2021-07-08] MEDS: Vancomycin 1 GM, Vancomycin 250 MG in Sodium Chloride 0.9% 250 ML IV SCH (16:54)
[2021-07-09] MEDS: Heparin Sodium 5,000 Units/ML Vial SUBCUT SCH ×3 (01:53→17:02)
[2021-07-09] MEDS: oxyCODONE 5 MG Tab PO PRN (02:01)
[2021-07-09] MEDS: Insulin Lispro 100 UNIT/ML 10 ML Vial SUBCUT SCH ×4 (07:20→21:25)
--- NOTE | 2021-07-09 08:56 | PCM.PN ---
- General Info Date of Service: 07/09/21 Admission Dx/Problem (Free Text): Admission Diagnosis/Problem Admission Diagnosis/Problem left lower extremity cellulitis/erysipelas Subjective Update: No acute events overnight. No new nursing concerns. Wounds and blisters attended to by PT/wound care yesterday. Multiple very large blisters were lanced and drained. Fluid sent for cultures. No fever overnight. No constitutional signs or symptoms. Patient states that her leg is itchy but not burning or painful. - Patient Data Vitals - Most Recent: Last Vital Signs Temp 98.2 F 07/09/21 08:14 Pulse 90 07/09/21 08:14 Resp 20 07/09/21 08:14 BP 105/42 L 07/09/21 08:14 Pulse Ox 92 L 07/09/21 08:14 Weight - Most Recent: 211 lb 12.8 oz I&O - Last 24 Hours: Intake & Output 07/08/21 07/09/21 07/09/21 22:59 06:59 14:59 Intake Total 760 600 Output Total 100 100 Balance 660 500 Lab Results Last 24 Hours: Laboratory Results - last 24 hr 07/08/21 07/08/21 07/08/21 Range/Units 10:51 16:30 20:41 WBC (3.98-10.04) K/mm3 RBC (3.98-5.22) M/mm3 Hgb (11.2-15.7) gm/dl Hct (34.1-44.9) % MCV (79.4-94.8) fl MCH (25.6-32.2) pg MCHC (32.2-35.5) g/dl RDW Std Deviation (36.4-46.3) fL Plt Count (182-369) K/mm3 MPV (9.4-12.3) fl Neut % (Auto) (34.0-71.1) % Lymph % (Auto) (19.3-51.7) % Banner % (Auto) (4.7-12.5) % Eos % (Auto) (0.7-5.8) Baso % (Auto) (0.1-1.2) % Neut # (Auto) (1.56-6.13) K/mm3 Lymph # (Auto) (1.18-3.74) K/mm3 Banner # (Auto) (0.24-0.36) K/mm3 Eos # (Auto) (0.04-0.36) K/mm3 Baso # (Auto) (0.01-0.08) K/mm3 POC Glucose 218 H 184 H 147 H (70-99) mg/dL 07/09/21 07/09/21 Range/Units 05:03 06:15 WBC 10.01 (3.98-10.04) K/mm3 RBC 3.88 L (3.98-5.22) M/mm3 Hgb 10.4 L (11.2-15.7) gm/dl Hct 33.0 L (34.1-44.9) % MCV 85.1 (79.4-94.8) fl MCH 26.8 (25.6-32.2) pg MCHC 31.5 L (32.2-35.5) g/dl RDW Std Deviation 41.9 (36.4-46.3) fL Plt Count 276 (182-369) K/mm3 MPV 9.4 (9.4-12.3) fl Neut % (Auto) 76.7 H (34.0-71.1) % Lymph % (Auto) 13.7 L (19.3-51.7) % Banner % (Auto) 6.5 (4.7-12.5) % Eos % (Auto) 2.3 (0.7-5.8) Baso % (Auto) 0.4 (0.1-1.2) % Neut # (Auto) 7.68 H (1.56-6.13) K/mm3 Lymph # (Auto) 1.37 (1.18-3.74) K/mm3 Banner # (Auto) 0.65 H (0.24-0.36) K/mm3 Eos # (Auto) 0.23 (0.04-0.36) K/mm3 Baso # (Auto) 0.04 (0.01-0.08) K/mm3 POC Glucose 121 H (70-99) mg/dL Jose Results Last 24 Hours: Microbiology 07/08/21 09:36 Gram Stain - Final Leg, Left 07/06/21 15:47 Blood Culture - Preliminary Blood - Venous - Lab Draw 07/06/21 15:38 Blood Culture - Preliminary Blood - Venous Med Orders - Current: Current Medications Acetaminophen (Acetaminophen 325 Mg Tab) 650 mg PO Q4H PRN PRN Reason: Pain (Mild 1-3)/fever Calcium Carbonate/Glycine (Calcium Carbonate 500 Mg Tab.Chew) 750 mg PO TID PRN PRN Reason: Heartburn Last Admin: 07/08/21 17:43 Dose: 750 mg Documented by: Furosemide (Furosemide 40 Mg Tab) 40 mg PO DAILY [facility] Last Admin: 07/08/21 09:41 Dose: 40 mg Documented by: Heparin Sodium (Porcine) (Heparin Sodium 5,000 Units/Ml Vial) 5,000 units SUBCUT Q8H [facility] Last Admin: 07/09/21 01:53 Dose: 5,000 units Documented by: Vancomycin HCl 1 gm/Vancomycin HCl 250 mg/ Sodium Chloride 250 mls @ 166.667 mls/hr IV Q24H [facility] Last Admin: 07/08/21 16:54 Dose: 166.667 mls/hr Documented by: Ceftriaxone Sodium 1 gm/ (Sodium Chloride) 100 mls @ 200 mls/hr IV Q12H [facility] Last Admin: 07/08/21 21:05 Dose: 200 mls/hr Documented by: Insulin Glargine (Insulin Glarg,Human.Rec.Analog 100 Unit/Ml) 50 unit SUBCUT DAILY [facility] Last Admin: 07/08/21 10:55 Dose: Not Given Documented by: Insulin Human Lispro (Insulin Lispro 100 Unit/Ml 10 Ml Vial) 0 unit SUBCUT QIDACANDBED [facility]; Protocol Last Admin: 07/09/21 07:20 Dose: Not Given Documented by: Ondansetron HCl (Ondansetron 4 Mg/2 Ml Sdv) 4 mg IV Q4H PRN PRN Reason: Nausea/Vomiting Oxycodone HCl (Oxycodone 5 Mg Tab) 5 mg PO Q4H PRN PRN Reason: Pain (moderate 4-6) Last Admin: 07/09/21 02:01 Dose: 5 mg Documented by: Sodium Chloride (Sodium Chloride 0.9% 10 Ml Syringe) 10 ml FLUSH ASDIRECTED PRN PRN Reason: Keep Vein Open Last Admin: 07/06/21 16:05 Dose: 10 ml Documented by: Vancomycin HCl (Pharmacy To Dose - Vancomycin) 0 dose .XX ASDIRECTED PRN PRN Reason: RX TO DOSE VANCOMYCIN Discontinued Medications Hydromorphone HCl (Hydromorphone 0.5 Mg/0.5 Ml Syringe) 0.5 mg IVPUSH ONETIME ONE Stop: 07/06/21 17:23 Last Admin: 07/06/21 17:29 Dose: 0.5 mg Documented by: Vancomycin HCl 2 gm/ Sodium (Chloride) 250 mls @ 250 mls/hr IV ONETIME ONE Stop: 07/06/21 16:16 Last Admin: 07/06/21 16:04 Dose: 250 mls/hr Documented by: Lactated Ringer's (Ringers, Lactated) 1,000 mls @ 75 mls/hr IV ASDIRECTED RACHEAL Last Admin: 07/06/21 19:43 Dose: 75 mls/hr Documented by: Insulin Glargine (Insulin Glarg,Human.Rec.Analog 100 Unit/Ml) 50 unit SUBCUT DAILY [facility] Last Admin: 07/08/21 09:42 Dose: 50 units Documented by: Insulin Glargine (Insulin Glarg,Human.Rec.Analog 100 Unit/Ml) 50 unit SUBCUT DAILY [facility] Potassium Chloride (Potassium Chloride 20 Meq Tab.Er) 40 meq PO ONETIME ONE Stop: 07/06/21 18:34 Last Admin: 07/06/21 18:56 Dose: 40 meq Documented by: - Exam General: Alert, No Acute Distress Lungs: Clear to Auscultation, Normal Respiratory Effort Cardiovascular: Regular Rate, Regular Rhythm GI/Abdominal Exam: Normal Bowel Sounds, Soft, Non-Tender Extremities: Pedal Edema, Redness Skin: Other (Left lower extremity still quite erythematous with mild calor and blistering. Little improvement in comparison.) Neurological: No New Focal Deficit - Patient Data Lab Results Last 24 hrs: Laboratory Results - last 24 hr 07/08/21 07/08/21 07/08/21 Range/Units 10:51 16:30 20:41 WBC (3.98-10.04) K/mm3 RBC (3.98-5.22) M/mm3 Hgb (11.2-15.7) gm/dl Hct (34.1-44.9) % MCV (79.4-94.8) fl MCH (25.6-32.2) pg MCHC (32.2-35.5) g/dl RDW Std Deviation (36.4-46.3) fL Plt Count (182-369) K/mm3 MPV (9.4-12.3) fl Neut % (Auto) (34.0-71.1) % Lymph % (Auto) (19.3-51.7) % Banner % (Auto) (4.7-12.5) % Eos % (Auto) (0.7-5.8) Baso % (Auto) (0.1-1.2) % Neut # (Auto) (1.56-6.13) K/mm3 Lymph # (Auto) (1.18-3.74) K/mm3 Banner # (Auto) (0.24-0.36) K/mm3 Eos # (Auto) (0.04-0.36) K/mm3 Baso # (Auto) (0.01-0.08) K/mm3 POC Glucose 218 H 184 H 147 H (70-99) mg/dL 07/09/21 07/09/21 Range/Units 05:03 06:15 WBC 10.01 (3.98-10.04) K/mm3 RBC 3.88 L (3.98-5.22) M/mm3 Hgb 10.4 L (11.2-15.7) gm/dl Hct 33.0 L (34.1-44.9) % MCV 85.1 (79.4-94.8) fl MCH 26.8 (25.6-32.2) pg MCHC 31.5 L (32.2-35.5) g/dl RDW Std Deviation 41.9 (36.4-46.3) fL Plt Count 276 (182-369) K/mm3 MPV 9.4 (9.4-12.3) fl Neut % (Auto) 76.7 H (34.0-71.1) % Lymph % (Auto) 13.7 L (19.3-51.7) % Banner % (Auto) 6.5 (4.7-12.5) % Eos % (Auto) 2.3 (0.7-5.8) Baso % (Auto) 0.4 (0.1-1.2) % Neut # (Auto) 7.68 H (1.56-6.13) K/mm3 Lymph # (Auto) 1.37 (1.18-3.74) K/mm3 Banner # (Auto) 0.65 H (0.24-0.36) K/mm3 Eos # (Auto) 0.23 (0.04-0.36) K/mm3 Baso # (Auto) 0.04 (0.01-0.08) K/mm3 POC Glucose 121 H (70-99) mg/dL Result Diagrams: 07/09/21 05:03 07/08/21 06:04 Jose Results Last 24 hrs: Microbiology 07/08/21 09:36 Gram Stain - Final Leg, Left 07/06/21 15:47 Blood Culture - Preliminary Blood - Venous - Lab Draw 07/06/21 15:38 Blood Culture - Preliminary Blood - Venous Sepsis Event Note - Evaluation Sepsis Screening Result: No Definite Risk - Focused Exam Vital Signs: Vital Signs Temp Pulse Resp BP BP Pulse Ox 07/09/21 08:14 98.2 F 90 20 105/42 L 92 L 07/09/21 03:45 101/54 L 07/09/21 03:31 97.3 F 82 20 91/59 L 95 07/09/21 02:05 98.8 F 93 20 101/43 L 94 L - Problem List Review Problem List Initiated/Reviewed/Updated: Yes - My Orders Last 24 Hours: My Active Orders 07/08/21 09:15 cefTRIAXone [Rocephin] 1 gm Sodium Chloride 0.9% [Normal Saline] 100 ml IV Q12H 07/08/21 09:36 CULTURE, ANAEROBE & AEROBE [MREF] Stat - Plan Plan:: This is a 55F with PMhx noted below presenting for evaluation of left lower extremity edema. The patient has had 2 days of worsening left lower extremity erythema and edema. She denies previous history of DVT. In the ED. Blood cultures were obtained. She was started on IV vancomycin and admitted for further evaluation. 1. Sepsis secondary to Cellulitis of left lower extremity; tachycardia; +Leukocytosis 2. Hx of Type II DM 3. Hypovolemic hyponatremia; sodium 134 on admission 4. Hypokalemia 5. Acute kidney injury; Cr 1.5 on admission Plan -Patient on pharmacy dosed vancomycin protocol as well as Rocephin. -PT consultation for lancing of the wounds and continued basic wound care. Aerobic and anaerobic cultures have been sent. -doppler venous US negative for DVT -Intermittent check of labs. Code-DNR/DNI DVT ppx-heparin subq
[2021-07-09] MEDS: Furosemide 40 MG Tab PO SCH (09:32)
[2021-07-09] MEDS: Insulin Glarg,Human.Rec.Analog 100 Unit/ML SUBCUT SCH (09:32)
[2021-07-09] MEDS: cefTRIAXone 1 GM in Sodium Chloride 0.9% 100 ML IV SCH ×2 (09:32→21:20)
[2021-07-09] MEDS: Vancomycin 1 GM, Vancomycin 250 MG in Sodium Chloride 0.9% 250 ML IV SCH (16:57)
[2021-07-09] MEDS: Calcium Carbonate 500 MG Tab.Chew PO PRN (20:25)
[2021-07-10] MEDS: Heparin Sodium 5,000 Units/ML Vial SUBCUT SCH ×3 (01:57→17:38)
[2021-07-10] MEDS: Insulin Lispro 100 UNIT/ML 10 ML Vial SUBCUT SCH ×4 (06:14→21:09)
[2021-07-10] MEDS: cefTRIAXone 1 GM in Sodium Chloride 0.9% 100 ML IV SCH ×2 (09:04→21:09)
[2021-07-10] MEDS: Calcium Carbonate 500 MG Tab.Chew PO PRN ×2 (09:05→21:10)
[2021-07-10] MEDS: Insulin Glarg,Human.Rec.Analog 100 Unit/ML SUBCUT SCH (09:05)
[2021-07-10] MEDS: Furosemide 40 MG Tab PO SCH (09:08)
[2021-07-10] MEDS ORDERED: Potassium Chloride 20 MEQ Tab.ER PO ONE (09:28)
--- NOTE | 2021-07-10 09:31 | PCM.PN ---
- General Info Date of Service: 07/10/21 Admission Dx/Problem (Free Text): Admission Diagnosis/Problem Admission Diagnosis/Problem left lower extremity cellulitis/erysipelas Subjective Update: No acute events overnight. No new nursing concerns. Blistered epidermis has been removed by PT and wound care yesterday. Patient states that the wound is somewhat tender today but is tolerable. Denies any fever or other constitutional symptoms. Does not endorse any new specific complaints other than some discomfort. Functional Status: Reports: Pain Controlled - Patient Data Vitals - Most Recent: Last Vital Signs Temp 98.1 F 07/10/21 08:53 Pulse 86 07/10/21 08:53 Resp 20 07/10/21 08:53 BP 132/76 07/10/21 08:53 Pulse Ox 97 07/10/21 08:53 Weight - Most Recent: 213 lb I&O - Last 24 Hours: Intake & Output 07/09/21 07/10/21 07/10/21 22:59 06:59 14:59 Intake Total 1570 500 Output Total 500 100 Balance 1070 400 Lab Results Last 24 Hours: Laboratory Results - last 24 hr 07/09/21 07/09/21 07/09/21 Range/Units 11:21 15:33 18:02 WBC (3.98-10.04) K/mm3 RBC (3.98-5.22) M/mm3 Hgb (11.2-15.7) gm/dl Hct (34.1-44.9) % MCV (79.4-94.8) fl MCH (25.6-32.2) pg MCHC (32.2-35.5) g/dl RDW Std Deviation (36.4-46.3) fL Plt Count (182-369) K/mm3 MPV (9.4-12.3) fl Neut % (Auto) (34.0-71.1) % Lymph % (Auto) (19.3-51.7) % Dickens % (Auto) (4.7-12.5) % Eos % (Auto) (0.7-5.8) Baso % (Auto) (0.1-1.2) % Neut # (Auto) (1.56-6.13) K/mm3 Lymph # (Auto) (1.18-3.74) K/mm3 Dickens # (Auto) (0.24-0.36) K/mm3 Eos # (Auto) (0.04-0.36) K/mm3 Baso # (Auto) (0.01-0.08) K/mm3 Sodium (136-145) mEq/L Potassium (3.5-5.1) mEq/L Chloride (98-107) mEq/L Carbon Dioxide (21-32) mEq/L Anion Gap (5-15) BUN (7-18) mg/dL Creatinine (0.55-1.02) mg/dL Est Cr Clr Drug Dosing mL/min Estimated GFR (MDRD) (>60) mL/min BUN/Creatinine Ratio (14-18) Glucose (70-99) mg/dL POC Glucose 189 H 208 H (70-99) mg/dL Calcium (8.5-10.1) mg/dL Vancomycin Trough 10.9 (10.0-20.0) 07/09/21 07/10/21 07/10/21 Range/Units 21:24 04:50 04:50 WBC 10.27 H (3.98-10.04) K/mm3 RBC 3.60 L (3.98-5.22) M/mm3 Hgb 9.7 L (11.2-15.7) gm/dl Hct 30.8 L (34.1-44.9) % MCV 85.6 (79.4-94.8) fl MCH 26.9 (25.6-32.2) pg MCHC 31.5 L (32.2-35.5) g/dl RDW Std Deviation 42.3 (36.4-46.3) fL Plt Count 341 (182-369) K/mm3 MPV 9.3 L (9.4-12.3) fl Neut % (Auto) 73.3 H (34.0-71.1) % Lymph % (Auto) 16.5 L (19.3-51.7) % Dickens % (Auto) 6.2 (4.7-12.5) % Eos % (Auto) 3.0 (0.7-5.8) Baso % (Auto) 0.3 (0.1-1.2) % Neut # (Auto) 7.53 H (1.56-6.13) K/mm3 Lymph # (Auto) 1.69 (1.18-3.74) K/mm3 Dickens # (Auto) 0.64 H (0.24-0.36) K/mm3 Eos # (Auto) 0.31 (0.04-0.36) K/mm3 Baso # (Auto) 0.03 (0.01-0.08) K/mm3 Sodium 142 (136-145) mEq/L Potassium 3.0 L (3.5-5.1) mEq/L Chloride 107 (98-107) mEq/L Carbon Dioxide 28 (21-32) mEq/L Anion Gap 10.0 (5-15) BUN 12 (7-18) mg/dL Creatinine 0.9 (0.55-1.02) mg/dL Est Cr Clr Drug Dosing 67.87 mL/min Estimated GFR (MDRD) > 60 (>60) mL/min BUN/Creatinine Ratio 13.3 L (14-18) Glucose 115 H (70-99) mg/dL POC Glucose 181 H (70-99) mg/dL Calcium 8.0 L (8.5-10.1) mg/dL Vancomycin Trough (10.0-20.0) 07/10/21 Range/Units 05:50 WBC (3.98-10.04) K/mm3 RBC (3.98-5.22) M/mm3 Hgb (11.2-15.7) gm/dl Hct (34.1-44.9) % MCV (79.4-94.8) fl MCH (25.6-32.2) pg MCHC (32.2-35.5) g/dl RDW Std Deviation (36.4-46.3) fL Plt Count (182-369) K/mm3 MPV (9.4-12.3) fl Neut % (Auto) (34.0-71.1) % Lymph % (Auto) (19.3-51.7) % Dickens % (Auto) (4.7-12.5) % Eos % (Auto) (0.7-5.8) Baso % (Auto) (0.1-1.2) % Neut # (Auto) (1.56-6.13) K/mm3 Lymph # (Auto) (1.18-3.74) K/mm3 Dickens # (Auto) (0.24-0.36) K/mm3 Eos # (Auto) (0.04-0.36) K/mm3 Baso # (Auto) (0.01-0.08) K/mm3 Sodium (136-145) mEq/L Potassium (3.5-5.1) mEq/L Chloride (98-107) mEq/L Carbon Dioxide (21-32) mEq/L Anion Gap (5-15) BUN (7-18) mg/dL Creatinine (0.55-1.02) mg/dL Est Cr Clr Drug Dosing mL/min Estimated GFR (MDRD) (>60) mL/min BUN/Creatinine Ratio (14-18) Glucose (70-99) mg/dL POC Glucose 94 (70-99) mg/dL Calcium (8.5-10.1) mg/dL Vancomycin Trough (10.0-20.0) Jose Results Last 24 Hours: Microbiology 07/08/21 09:36 Aerobic Culture - Preliminary Leg, Left Gram Stain - Final Med Orders - Current: Current Medications Acetaminophen (Acetaminophen 325 Mg Tab) 650 mg PO Q4H PRN PRN Reason: Pain (Mild 1-3)/fever Calcium Carbonate/Glycine (Calcium Carbonate 500 Mg Tab.Chew) 750 mg PO TID PRN PRN Reason: Heartburn Last Admin: 07/10/21 09:05 Dose: 750 mg Documented by: Furosemide (Furosemide 40 Mg Tab) 40 mg PO DAILY [facility] Last Admin: 07/10/21 09:08 Dose: 40 mg Documented by: Heparin Sodium (Porcine) (Heparin Sodium 5,000 Units/Ml Vial) 5,000 units SUBCUT Q8H [facility] Last Admin: 07/10/21 01:57 Dose: 5,000 units Documented by: Vancomycin HCl 1 gm/Vancomycin HCl 250 mg/ Sodium Chloride 250 mls @ 166.667 mls/hr IV Q24H [facility] Last Admin: 07/09/21 16:57 Dose: 166.667 mls/hr Documented by: Ceftriaxone Sodium 1 gm/ (Sodium Chloride) 100 mls @ 200 mls/hr IV Q12H [facility] Last Admin: 07/10/21 09:04 Dose: 200 mls/hr Documented by: Insulin Glargine (Insulin Glarg,Human.Rec.Analog 100 Unit/Ml) 50 unit SUBCUT DAILY [facility] Last Admin: 07/10/21 09:05 Dose: 50 units Documented by: Insulin Human Lispro (Insulin Lispro 100 Unit/Ml 10 Ml Vial) 0 unit SUBCUT QIDACANDBED [facility]; Protocol Last Admin: 07/10/21 06:14 Dose: Not Given Documented by: Ondansetron HCl (Ondansetron 4 Mg/2 Ml Sdv) 4 mg IV Q4H PRN PRN Reason: Nausea/Vomiting Oxycodone HCl (Oxycodone 5 Mg Tab) 5 mg PO Q4H PRN PRN Reason: Pain (moderate 4-6) Last Admin: 07/09/21 02:01 Dose: 5 mg Documented by: Sodium Chloride (Sodium Chloride 0.9% 10 Ml Syringe) 10 ml FLUSH ASDIRECTED PRN PRN Reason: Keep Vein Open Last Admin: 07/06/21 16:05 Dose: 10 ml Documented by: Vancomycin HCl (Pharmacy To Dose - Vancomycin) 0 dose .XX ASDIRECTED PRN PRN Reason: RX TO DOSE VANCOMYCIN Discontinued Medications Hydromorphone HCl (Hydromorphone 0.5 Mg/0.5 Ml Syringe) 0.5 mg IVPUSH ONETIME ONE Stop: 07/06/21 17:23 Last Admin: 07/06/21 17:29 Dose: 0.5 mg Documented by: Vancomycin HCl 2 gm/ Sodium (Chloride) 250 mls @ 250 mls/hr IV ONETIME ONE Stop: 07/06/21 16:16 Last Admin: 07/06/21 16:04 Dose: 250 mls/hr Documented by: Lactated Ringer's (Ringers, Lactated) 1,000 mls @ 75 mls/hr IV ASDIRECTED [facility] Last Admin: 07/06/21 19:43 Dose: 75 mls/hr Documented by: Insulin Glargine (Insulin Glarg,Human.Rec.Analog 100 Unit/Ml) 50 unit SUBCUT DAILY [facility] Last Admin: 07/08/21 09:42 Dose: 50 units Documented by: Insulin Glargine (Insulin Glarg,Human.Rec.Analog 100 Unit/Ml) 50 unit SUBCUT DAILY [facility] Potassium Chloride (Potassium Chloride 20 Meq Tab.Er) 40 meq PO ONETIME ONE Stop: 07/06/21 18:34 Last Admin: 07/06/21 18:56 Dose: 40 meq Documented by: - Exam General: Alert, No Acute Distress, Other (Nontoxic-appearing) Lungs: Clear to Auscultation, Normal Respiratory Effort Cardiovascular: Regular Rate, Regular Rhythm GI/Abdominal Exam: Normal Bowel Sounds, Soft, Non-Tender Extremities: Redness Skin: Other (Left lower extremity has significant improvement in comparison to yesterday. Erythema now receding to within previously marked borders. Both feet now appear equivocal. Another large blister is forming however. Less calor and blanching.) Wound/Incisions: Healing Well, Erythema - Patient Data Lab Results Last 24 hrs: Laboratory Results - last 24 hr 07/09/21 07/09/21 07/09/21 Range/Units 11:21 15:33 18:02 WBC (3.98-10.04) K/mm3 RBC (3.98-5.22) M/mm3 Hgb (11.2-15.7) gm/dl Hct (34.1-44.9) % MCV (79.4-94.8) fl MCH (25.6-32.2) pg MCHC (32.2-35.5) g/dl RDW Std Deviation (36.4-46.3) fL Plt Count (182-369) K/mm3 MPV (9.4-12.3) fl Neut % (Auto) (34.0-71.1) % Lymph % (Auto) (19.3-51.7) % Dickens % (Auto) (4.7-12.5) % Eos % (Auto) (0.7-5.8) Baso % (Auto) (0.1-1.2) % Neut # (Auto) (1.56-6.13) K/mm3 Lymph # (Auto) (1.18-3.74) K/mm3 Dickens # (Auto) (0.24-0.36) K/mm3 Eos # (Auto) (0.04-0.36) K/mm3 Baso # (Auto) (0.01-0.08) K/mm3 Sodium (136-145) mEq/L Potassium (3.5-5.1) mEq/L Chloride (98-107) mEq/L Carbon Dioxide (21-32) mEq/L Anion Gap (5-15) BUN (7-18) mg/dL Creatinine (0.55-1.02) mg/dL Est Cr Clr Drug Dosing mL/min Estimated GFR (MDRD) (>60) mL/min BUN/Creatinine Ratio (14-18) Glucose (70-99) mg/dL POC Glucose 189 H 208 H (70-99) mg/dL Calcium (8.5-10.1) mg/dL Vancomycin Trough 10.9 (10.0-20.0) 07/09/21 07/10/21 07/10/21 Range/Units 21:24 04:50 04:50 WBC 10.27 H (3.98-10.04) K/mm3 RBC 3.60 L (3.98-5.22) M/mm3 Hgb 9.7 L (11.2-15.7) gm/dl Hct 30.8 L (34.1-44.9) % MCV 85.6 (79.4-94.8) fl MCH 26.9 (25.6-32.2) pg MCHC 31.5 L (32.2-35.5) g/dl RDW Std Deviation 42.3 (36.4-46.3) fL Plt Count 341 (182-369) K/mm3 MPV 9.3 L (9.4-12.3) fl Neut % (Auto) 73.3 H (34.0-71.1) % Lymph % (Auto) 16.5 L (19.3-51.7) % Dickens % (Auto) 6.2 (4.7-12.5) % Eos % (Auto) 3.0 (0.7-5.8) Baso % (Auto) 0.3 (0.1-1.2) % Neut # (Auto) 7.53 H (1.56-6.13) K/mm3 Lymph # (Auto) 1.69 (1.18-3.74) K/mm3 Dickens # (Auto) 0.64 H (0.24-0.36) K/mm3 Eos # (Auto) 0.31 (0.04-0.36) K/mm3 Baso # (Auto) 0.03 (0.01-0.08) K/mm3 Sodium 142 (136-145) mEq/L Potassium 3.0 L (3.5-5.1) mEq/L Chloride 107 (98-107) mEq/L Carbon Dioxide 28 (21-32) mEq/L Anion Gap 10.0 (5-15) BUN 12 (7-18) mg/dL Creatinine 0.9 (0.55-1.02) mg/dL Est Cr Clr Drug Dosing 67.87 mL/min Estimated GFR (MDRD) > 60 (>60) mL/min BUN/Creatinine Ratio 13.3 L (14-18) Glucose 115 H (70-99) mg/dL POC Glucose 181 H (70-99) mg/dL Calcium 8.0 L (8.5-10.1) mg/dL Vancomycin Trough (10.0-20.0) 07/10/21 Range/Units 05:50 WBC (3.98-10.04) K/mm3 RBC (3.98-5.22) M/mm3 Hgb (11.2-15.7) gm/dl Hct (34.1-44.9) % MCV (79.4-94.8) fl MCH (25.6-32.2) pg MCHC (32.2-35.5) g/dl RDW Std Deviation (36.4-46.3) fL Plt Count (182-369) K/mm3 MPV (9.4-12.3) fl Neut % (Auto) (34.0-71.1) % Lymph % (Auto) (19.3-51.7) % Dickens % (Auto) (4.7-12.5) % Eos % (Auto) (0.7-5.8) Baso % (Auto) (0.1-1.2) % Neut # (Auto) (1.56-6.13) K/mm3 Lymph # (Auto) (1.18-3.74) K/mm3 Dickens # (Auto) (0.24-0.36) K/mm3 Eos # (Auto) (0.04-0.36) K/mm3 Baso # (Auto) (0.01-0.08) K/mm3 Sodium (136-145) mEq/L Potassium (3.5-5.1) mEq/L Chloride (98-107) mEq/L Carbon Dioxide (21-32) mEq/L Anion Gap (5-15) BUN (7-18) mg/dL Creatinine (0.55-1.02) mg/dL Est Cr Clr Drug Dosing mL/min Estimated GFR (MDRD) (>60) mL/min BUN/Creatinine Ratio (14-18) Glucose (70-99) mg/dL POC Glucose 94 (70-99) mg/dL Calcium (8.5-10.1) mg/dL Vancomycin Trough (10.0-20.0) Result Diagrams: 07/10/21 04:50 07/10/21 04:50 Jose Results Last 24 hrs: Microbiology 07/08/21 09:36 Aerobic Culture - Preliminary Leg, Left Gram Stain - Final Sepsis Event Note - Evaluation Sepsis Screening Result: No Definite Risk - Focused Exam Vital Signs: Vital Signs Temp Pulse Resp BP Pulse Ox 07/10/21 08:53 98.1 F 86 20 132/76 97 07/10/21 05:53 98.1 F 84 18 100/50 L 95 07/09/21 21:29 98.1 F 87 18 119/57 L 93 L - Problem List Review Problem List Initiated/Reviewed/Updated: Yes - Plan Plan:: This is a 55F with PMhx noted below presenting for evaluation of left lower extremity edema. The patient has had 2 days of worsening left lower extremity erythema and edema. She denies previous history of DVT. In the ED. Blood cultures were obtained. She was started on IV vancomycin and admitted for further evaluation. 1. Sepsis secondary to Cellulitis of left lower extremity; tachycardia; +Leukocytosis 2. Hx of Type II DM 3. Hypovolemic hyponatremia; sodium 134 on admission 4. Hypokalemia 5. Acute kidney injury; Cr 1.5 on admission Plan -Patient on pharmacy dosed vancomycin protocol as well as Rocephin. -PT consultation for lancing of the wounds and continued basic wound care. Aerobic and anaerobic cultures have been sent, cultures negative to date. -doppler venous US negative for DVT -Intermittent check of labs. Overall, significant improvement over the past 48 hours with addition of Rocephin to the antibiotic regimen. Continue wound care. Debride as necessary. Plan for 7 days of total antibiotic therapy before reevaluation regarding continued IV therapy versus p.o. therapy and entertaining possible discharge with wound care if that is safe to do so. Code-DNR/DNI DVT ppx-heparin subq
[2021-07-10] MEDS: Acetaminophen 325 MG Tab PO PRN (14:32)
[2021-07-10] MEDS: Vancomycin 1 GM, Vancomycin 250 MG in Sodium Chloride 0.9% 250 ML IV SCH (16:00)
[2021-07-11] MEDS: Heparin Sodium 5,000 Units/ML Vial SUBCUT SCH ×3 (01:25→17:55)
[2021-07-11] MEDS: Acetaminophen 325 MG Tab PO PRN ×2 (01:28→16:32)
[2021-07-11] MEDS: Insulin Lispro 100 UNIT/ML 10 ML Vial SUBCUT SCH ×4 (08:17→21:43)
[2021-07-11] MEDS: Furosemide 40 MG Tab PO SCH (08:18)
[2021-07-11] MEDS: Insulin Glarg,Human.Rec.Analog 100 Unit/ML SUBCUT SCH (08:18)
[2021-07-11] MEDS: cefTRIAXone 1 GM in Sodium Chloride 0.9% 100 ML IV SCH ×2 (08:19→21:43)
[2021-07-11] MEDS: Calcium Carbonate 500 MG Tab.Chew PO PRN ×2 (09:10→16:23)
--- NOTE | 2021-07-11 11:59 | PCM.PN ---
- General Info Date of Service: 07/11/21 Admission Dx/Problem (Free Text): Admission Diagnosis/Problem Admission Diagnosis/Problem left lower extremity cellulitis/erysipelas Subjective Update: No acute events overnight. No new nursing concerns. No new patient complaints. No fever or constitutional signs. Physical therapy team continues wound care - Patient Data Vitals - Most Recent: Last Vital Signs Temp 98.1 F 07/11/21 11:30 Pulse 86 07/11/21 11:30 Resp 16 07/11/21 11:30 BP 99/65 07/11/21 11:30 Pulse Ox 92 L 07/11/21 11:30 Weight - Most Recent: 213 lb 6.4 oz I&O - Last 24 Hours: Intake & Output 07/10/21 07/11/21 07/11/21 22:59 06:59 14:59 Intake Total 1430 500 Output Total 150 Balance 1280 500 Lab Results Last 24 Hours: Laboratory Results - last 24 hr 07/10/21 07/10/21 07/11/21 Range/Units 16:59 20:40 06:30 POC Glucose 144 H 155 H 158 H (70-99) mg/dL 07/11/21 Range/Units 10:38 POC Glucose 236 H (70-99) mg/dL [place] Results Last 24 Hours: Microbiology 07/08/21 09:36 Aerobic Culture - Preliminary Leg, Left Gram Stain - Final Anaerobic Culture - Preliminary Med Orders - Current: Current Medications Acetaminophen (Acetaminophen 325 Mg Tab) 650 mg PO Q4H PRN PRN Reason: Pain (Mild 1-3)/fever Last Admin: 07/11/21 01:28 Dose: 650 mg Documented by: Calcium Carbonate/Glycine (Calcium Carbonate 500 Mg Tab.Chew) 750 mg PO TID PRN PRN Reason: Heartburn Last Admin: 07/11/21 09:10 Dose: 750 mg Documented by: Furosemide (Furosemide 40 Mg Tab) 40 mg PO DAILY [facility] Last Admin: 07/11/21 08:18 Dose: 40 mg Documented by: Heparin Sodium (Porcine) (Heparin Sodium 5,000 Units/Ml Vial) 5,000 units SUBCUT Q8H [facility] Last Admin: 07/11/21 08:30 Dose: 5,000 units Documented by: Vancomycin HCl 1 gm/Vancomycin HCl 250 mg/ Sodium Chloride 250 mls @ 166.667 mls/hr IV Q24H [facility] Last Admin: 07/10/21 16:00 Dose: 166.667 mls/hr Documented by: Ceftriaxone Sodium 1 gm/ (Sodium Chloride) 100 mls @ 200 mls/hr IV Q12H [facility] Last Admin: 07/11/21 08:19 Dose: 200 mls/hr Documented by: Insulin Glargine (Insulin Glarg,Human.Rec.Analog 100 Unit/Ml) 50 unit SUBCUT DAILY [facility] Last Admin: 07/11/21 08:18 Dose: 50 units Documented by: Insulin Human Lispro (Insulin Lispro 100 Unit/Ml 10 Ml Vial) 0 unit SUBCUT QIDACANDBED [facility]; Protocol Last Admin: 07/11/21 08:17 Dose: 2 units Documented by: Ondansetron HCl (Ondansetron 4 Mg/2 Ml Sdv) 4 mg IV Q4H PRN PRN Reason: Nausea/Vomiting Oxycodone HCl (Oxycodone 5 Mg Tab) 5 mg PO Q4H PRN PRN Reason: Pain (moderate 4-6) Last Admin: 07/09/21 02:01 Dose: 5 mg Documented by: Sodium Chloride (Sodium Chloride 0.9% 10 Ml Syringe) 10 ml FLUSH ASDIRECTED PRN PRN Reason: Keep Vein Open Last Admin: 07/06/21 16:05 Dose: 10 ml Documented by: Vancomycin HCl (Pharmacy To Dose - Vancomycin) 0 dose .XX ASDIRECTED PRN PRN Reason: RX TO DOSE VANCOMYCIN Discontinued Medications Hydromorphone HCl (Hydromorphone 0.5 Mg/0.5 Ml Syringe) 0.5 mg IVPUSH ONETIME ONE Stop: 07/06/21 17:23 Last Admin: 07/06/21 17:29 Dose: 0.5 mg Documented by: Vancomycin HCl 2 gm/ Sodium (Chloride) 250 mls @ 250 mls/hr IV ONETIME ONE Stop: 07/06/21 16:16 Last Admin: 07/06/21 16:04 Dose: 250 mls/hr Documented by: Lactated Ringer's (Ringers, Lactated) 1,000 mls @ 75 mls/hr IV ASDIRECTED [facility] Last Admin: 07/06/21 19:43 Dose: 75 mls/hr Documented by: Insulin Glargine (Insulin Glarg,Human.Rec.Analog 100 Unit/Ml) 50 unit SUBCUT DAILY [facility] Last Admin: 07/08/21 09:42 Dose: 50 units Documented by: Insulin Glargine (Insulin Glarg,Human.Rec.Analog 100 Unit/Ml) 50 unit SUBCUT DAILY [facility] Potassium Chloride (Potassium Chloride 20 Meq Tab.Er) 40 meq PO ONETIME ONE Stop: 07/06/21 18:34 Last Admin: 07/06/21 18:56 Dose: 40 meq Documented by: Potassium Chloride (Potassium Chloride 20 Meq Tab.Er) 40 meq PO ONETIME ONE Stop: 07/10/21 09:29 Last Admin: 07/10/21 09:56 Dose: 40 meq Documented by: - Exam Quality Assessment: No: Supplemental Oxygen General: Alert, No Acute Distress Lungs: Clear to Auscultation, Normal Respiratory Effort Cardiovascular: Regular Rate, Regular Rhythm GI/Abdominal Exam: Normal Bowel Sounds, Soft, Non-Tender Extremities: Redness Skin: Other (Leg wounds and cellutlits appears ratherr status quo /slightly i mproved in comparison to yesterday.) Wound/Incisions: Healing Well - Patient Data Lab Results Last 24 hrs: Laboratory Results - last 24 hr 07/10/21 07/10/21 07/11/21 Range/Units 16:59 20:40 06:30 POC Glucose 144 H 155 H 158 H (70-99) mg/dL 07/11/21 Range/Units 10:38 POC Glucose 236 H (70-99) mg/dL Result Diagrams: 07/10/21 04:50 07/10/21 04:50 Jose Results Last 24 hrs: Microbiology 07/08/21 09:36 Aerobic Culture - Preliminary Leg, Left Gram Stain - Final Anaerobic Culture - Preliminary Sepsis Event Note - Evaluation Sepsis Screening Result: No Definite Risk - Focused Exam Vital Signs: Vital Signs Temp Pulse Resp BP Pulse Ox 07/11/21 11:30 98.1 F 86 16 99/65 92 L 07/11/21 07:41 98.2 F 82 18 104/58 L 96 07/11/21 02:43 97.9 F 85 18 113/66 98 - Problem List Review Problem List Initiated/Reviewed/Updated: Yes - My Orders Last 24 Hours: My Active Orders 07/11/21 15:00 VANCOMYCIN TROUGH [CHEM] Timed - Plan Plan:: This is a 55F with PMhx noted below presenting for evaluation of left lower extremity edema. The patient has had 2 days of worsening left lower extremity erythema and edema. She denies previous history of DVT. In the ED. Blood cultures were obtained. She was started on IV vancomycin and admitted for further evaluation. 1. Sepsis secondary to Cellulitis of left lower extremity; tachycardia; +Leukocytosis 2. Hx of Type II DM 3. Hypovolemic hyponatremia; sodium 134 on admission 4. Hypokalemia 5. Acute kidney injury; Cr 1.5 on admission Plan -Patient on pharmacy dosed vancomycin protocol as well as Rocephin. -PT consultation for lancing of the wounds and continued basic wound care. Aerobic and anaerobic cultures have been sent, cultures negative to date. -doppler venous US negative for DVT -Intermittent check of labs. Overall, significant improvement over the past 72 hours with addition of Rocephin to the antibiotic regimen. Continue wound care. Debride as necessary. Plan for 7 days of total IV antibiotic therapy before reevaluation regarding continued IV therapy versus p.o. therapy and entertaining possible discharge with wound care if that is safe to do so. Code-DNR/DNI DVT ppx-heparin subq
[2021-07-11] MEDS: Vancomycin 1 GM, Vancomycin 250 MG in Sodium Chloride 0.9% 250 ML IV SCH (16:23)
[2021-07-11] MEDS: Gabapentin 100 MG Cap PO SCH (21:43)
[2021-07-12] MEDS: Heparin Sodium 5,000 Units/ML Vial SUBCUT SCH ×3 (02:08→16:54)
[2021-07-12] MEDS: Vancomycin 1 GM, Vancomycin 250 MG in Sodium Chloride 0.9% 250 ML IV SCH ×2 (05:10→15:57)
[2021-07-12] MEDS: Insulin Lispro 100 UNIT/ML 10 ML Vial SUBCUT SCH ×4 (06:52→21:51)
[2021-07-12] MEDS: cefTRIAXone 1 GM in Sodium Chloride 0.9% 100 ML IV SCH ×2 (08:46→21:52)
[2021-07-12] MEDS: Furosemide 40 MG Tab PO SCH (08:47)
[2021-07-12] MEDS: Insulin Glarg,Human.Rec.Analog 100 Unit/ML SUBCUT SCH (08:47)
[2021-07-12] MEDS: Gabapentin 100 MG Cap PO SCH ×2 (08:48→21:52)
--- NOTE | 2021-07-12 09:02 | PCM.PN ---
- General Info Date of Service: 07/12/21 Admission Dx/Problem (Free Text): Admission Diagnosis/Problem Admission Diagnosis/Problem left lower extremity cellulitis/erysipelas Subjective Update: No acute events overnight. No new nursing concerns. Seen by PT and wound care again yesterday. No significant improvement as previously described yesterday. Patient endorses the fact that the leg becomes itchy while that is wrapped. Denies any burning. No fever or constitutional symptoms. Otherwise feeling well. Continuing IV antibiotic therapy for full course while in the hospital. - Patient Data Vitals - Most Recent: Last Vital Signs Temp 97.9 F 07/12/21 05:16 Pulse 83 07/12/21 05:16 Resp 18 07/12/21 05:16 BP 101/54 L 07/12/21 05:16 Pulse Ox 96 07/12/21 05:16 Weight - Most Recent: 212 lb 14.4 oz I&O - Last 24 Hours: Intake & Output 07/11/21 07/12/21 07/12/21 22:59 06:59 14:59 Intake Total 1390 500 Output Total 200 Balance 1190 500 Lab Results Last 24 Hours: Laboratory Results - last 24 hr 07/11/21 07/11/21 07/11/21 Range/Units 10:38 14:59 16:31 POC Glucose 236 H 148 H (70-99) mg/dL Vancomycin Trough 10.7 (10.0-20.0) 07/11/21 07/12/21 Range/Units 21:12 06:46 POC Glucose 213 H 141 H (70-99) mg/dL Vancomycin Trough (10.0-20.0) Jose Results Last 24 Hours: Microbiology 07/06/21 15:47 Blood Culture - Final Blood - Venous - Lab Draw 07/06/21 15:38 Blood Culture - Final Blood - Venous 07/08/21 09:36 Aerobic Culture - Preliminary Leg, Left Gram Stain - Final Anaerobic Culture - Preliminary Med Orders - Current: Current Medications Acetaminophen (Acetaminophen 325 Mg Tab) 650 mg PO Q4H PRN PRN Reason: Pain (Mild 1-3)/fever Last Admin: 07/11/21 16:32 Dose: 650 mg Documented by: Calcium Carbonate/Glycine (Calcium Carbonate 500 Mg Tab.Chew) 750 mg PO TID PRN PRN Reason: Heartburn Last Admin: 07/11/21 16:23 Dose: 750 mg Documented by: Furosemide (Furosemide 40 Mg Tab) 40 mg PO DAILY [facility] Last Admin: 07/12/21 08:47 Dose: 40 mg Documented by: Gabapentin (Gabapentin 100 Mg Cap) 100 mg PO BID [facility] Last Admin: 07/12/21 08:48 Dose: 100 mg Documented by: Heparin Sodium (Porcine) (Heparin Sodium 5,000 Units/Ml Vial) 5,000 units SUBCUT Q8H [facility] Last Admin: 07/12/21 08:46 Dose: 5,000 units Documented by: Ceftriaxone Sodium 1 gm/ (Sodium Chloride) 100 mls @ 200 mls/hr IV Q12H [facility] Last Admin: 07/12/21 08:46 Dose: 200 mls/hr Documented by: Vancomycin HCl 1 gm/Vancomycin HCl 250 mg/ Sodium Chloride 250 mls @ 166 mls/hr IV Q12H [facility] Last Admin: 07/12/21 05:10 Dose: 166 mls/hr Documented by: Insulin Glargine (Insulin Glarg,Human.Rec.Analog 100 Unit/Ml) 50 unit SUBCUT DAILY [facility] Last Admin: 07/12/21 08:47 Dose: 50 units Documented by: Insulin Human Lispro (Insulin Lispro 100 Unit/Ml 10 Ml Vial) 0 unit SUBCUT QIDACANDBED [facility]; Protocol Last Admin: 07/12/21 06:52 Dose: Not Given Documented by: Ondansetron HCl (Ondansetron 4 Mg/2 Ml Sdv) 4 mg IV Q4H PRN PRN Reason: Nausea/Vomiting Oxycodone HCl (Oxycodone 5 Mg Tab) 5 mg PO Q4H PRN PRN Reason: Pain (moderate 4-6) Last Admin: 07/09/21 02:01 Dose: 5 mg Documented by: Sodium Chloride (Sodium Chloride 0.9% 10 Ml Syringe) 10 ml FLUSH ASDIRECTED PRN PRN Reason: Keep Vein Open Last Admin: 07/06/21 16:05 Dose: 10 ml Documented by: Vancomycin HCl (Pharmacy To Dose - Vancomycin) 0 dose .XX ASDIRECTED PRN PRN Reason: RX TO DOSE VANCOMYCIN Discontinued Medications Hydromorphone HCl (Hydromorphone 0.5 Mg/0.5 Ml Syringe) 0.5 mg IVPUSH ONETIME ONE Stop: 07/06/21 17:23 Last Admin: 07/06/21 17:29 Dose: 0.5 mg Documented by: Vancomycin HCl 2 gm/ Sodium (Chloride) 250 mls @ 250 mls/hr IV ONETIME ONE Stop: 07/06/21 16:16 Last Admin: 07/06/21 16:04 Dose: 250 mls/hr Documented by: Vancomycin HCl 1 gm/Vancomycin HCl 250 mg/ Sodium Chloride 250 mls @ 166.667 mls/hr IV Q24H [facility] Stop: 07/11/21 20:00 Last Admin: 07/11/21 16:23 Dose: 166.667 mls/hr Documented by: Lactated Ringer's (Ringers, Lactated) 1,000 mls @ 75 mls/hr IV ASDIRECTED [facility] Last Admin: 07/06/21 19:43 Dose: 75 mls/hr Documented by: Insulin Glargine (Insulin Glarg,Human.Rec.Analog 100 Unit/Ml) 50 unit SUBCUT DAILY [facility] Last Admin: 07/08/21 09:42 Dose: 50 units Documented by: Insulin Glargine (Insulin Glarg,Human.Rec.Analog 100 Unit/Ml) 50 unit SUBCUT DAILY [facility] Potassium Chloride (Potassium Chloride 20 Meq Tab.Er) 40 meq PO ONETIME ONE Stop: 07/06/21 18:34 Last Admin: 07/06/21 18:56 Dose: 40 meq Documented by: Potassium Chloride (Potassium Chloride 20 Meq Tab.Er) 40 meq PO ONETIME ONE Stop: 07/10/21 09:29 Last Admin: 07/10/21 09:56 Dose: 40 meq Documented by: - Exam General: Alert, No Acute Distress Lungs: Clear to Auscultation, Normal Respiratory Effort Cardiovascular: Regular Rate GI/Abdominal Exam: Normal Bowel Sounds, Soft, Non-Tender Extremities: Redness Skin: Warm, Other (Chronic venous stasis still apparent. Minimal improvement in comparison to yesterday. Still with calor. Affected area continues to blister. Yellow fluid drainage from blisters. No signs to suggest abscess. Contralateral limb with mild pretibial wound with mild surrounding erythema. Essentiall) Psy/Mental Status: Normal Mood - Patient Data Lab Results Last 24 hrs: Laboratory Results - last 24 hr 07/11/21 07/11/21 07/11/21 Range/Units 10:38 14:59 16:31 POC Glucose 236 H 148 H (70-99) mg/dL Vancomycin Trough 10.7 (10.0-20.0) 07/11/21 07/12/21 Range/Units 21:12 06:46 POC Glucose 213 H 141 H (70-99) mg/dL Vancomycin Trough (10.0-20.0) Result Diagrams: 07/10/21 04:50 07/10/21 04:50 Jose Results Last 24 hrs: Microbiology 07/06/21 15:47 Blood Culture - Final Blood - Venous - Lab Draw 07/06/21 15:38 Blood Culture - Final Blood - Venous 07/08/21 09:36 Aerobic Culture - Preliminary Leg, Left Gram Stain - Final Anaerobic Culture - Preliminary Sepsis Event Note - Evaluation Sepsis Screening Result: No Definite Risk - Focused Exam Vital Signs: Vital Signs Temp Pulse Resp BP Pulse Ox 07/12/21 05:16 97.9 F 83 18 101/54 L 96 - Problem List Review Problem List Initiated/Reviewed/Updated: Yes - My Orders Last 24 Hours: My Active Orders 07/11/21 16:57 Patient Status [ADT] Routine 07/11/21 21:00 Gabapentin [Neurontin] 100 mg PO BID - Plan Plan:: This is a 55F with PMhx noted below presenting for evaluation of left lower extr emity edema. The patient has had 2 days of worsening left lower extremity erythema and edema. She denies previous history of DVT. In the ED. Blood cultures were obtained. She was started on IV vancomycin and admitted for further evaluation. 1. Sepsis secondary to Cellulitis of left lower extremity; tachycardia; +Leukocytosis 2. Hx of Type II DM 3. Hypovolemic hyponatremia; sodium 134 on admission 4. Hypokalemia 5. Acute kidney injury; Cr 1.5 on admission Plan -Patient on pharmacy dosed vancomycin protocol as well as Rocephin. -PT consultation for lancing of the wounds and continued basic wound care. Aerobic and anaerobic cultures have been sent, cultures continue to be negative to date. -doppler venous US negative for DVT -Intermittent check of labs. Minimal improvement in comparison to yesterday but overall improvement in comparison to time of admission. Plan is to continue full course of antibiotic therapy of at least 7 to 10 days as previously discussed with the care team. Patient will need wound care as well as wound care supplies on an outpatient basis. I am told that she is likely going to have to be responsible for these by herself as she will have to purchase these from a local pharmacy. There are likely insurance issues. This case will be personally signed out to the oncoming provider who will be taking over her care tomorrow. Code-DNR/DNI DVT ppx-heparin subq
[2021-07-12] MEDS: Calcium Carbonate 500 MG Tab.Chew PO PRN ×2 (09:19→15:45)
[2021-07-12] MEDS ORDERED: diphenhydrAMINE 50 MG Cap PO ONE (16:15)
[2021-07-13] MEDS: Heparin Sodium 5,000 Units/ML Vial SUBCUT SCH ×3 (02:19→16:40)
[2021-07-13] MEDS: oxyCODONE 5 MG Tab PO PRN (03:38)
[2021-07-13] MEDS: Vancomycin 1 GM, Vancomycin 250 MG in Sodium Chloride 0.9% 250 ML IV SCH (03:45)
[2021-07-13] MEDS: Insulin Lispro 100 UNIT/ML 10 ML Vial SUBCUT SCH ×5 (06:36→21:19)
--- NOTE | 2021-07-13 07:14 | PCM.PN ---
- General Info Date of Service: 07/13/21 Admission Dx/Problem (Free Text): Admission Diagnosis/Problem Admission Diagnosis/Problem left lower extremity cellulitis/erysipelas Subjective Update: The patient is a 55-year-old lady who was admitted to acute hospitalization on July 06, 2021 secondary to severe left lower leg cellulitis with venous stasis. The patient today says that her cellulitis is improved considerably. The patient has denied any pain. She has been doing well otherwise. She has been tolerating her diet. The patient also has been able to shower without extreme discomfort of her left lower leg. Functional Status: Reports: Pain Controlled, Tolerating Diet - Review of Systems General: Reports: Weakness, Fatigue HEENT: Reports: No Symptoms Pulmonary: Reports: No Symptoms Cardiovascular: Reports: No Symptoms Gastrointestinal: Reports: No Symptoms Genitourinary: Reports: No Symptoms Musculoskeletal: Reports: No Symptoms Skin: Reports: Dryness, Rash (Itching), Other (The patient has a uticaria on typ e rash extending from her upper thighs to her lower abdomen) Neurological: Reports: No Symptoms Psychiatric: Reports: No Symptoms - Patient Data Vitals - Most Recent: Last Vital Signs Temp 36.6 C 07/13/21 03:04 Pulse 88 07/13/21 03:04 Resp 18 07/13/21 03:04 BP 106/79 07/13/21 03:04 Pulse Ox 94 L 07/13/21 03:04 Weight - Most Recent: 97.795 kg I&O - Last 24 Hours: Intake & Output 07/12/21 07/13/21 07/13/21 22:59 06:59 14:59 Intake Total 1150 1000 Output Total 100 Balance 1050 1000 Lab Results Last 24 Hours: Laboratory Results - last 24 hr 07/12/21 07/12/21 07/12/21 Range/Units 10:35 16:53 21:25 POC Glucose 191 H 182 H 210 H (70-99) mg/dL 07/13/21 Range/Units 05:46 POC Glucose 146 H (70-99) mg/dL Jose Results Last 24 Hours: Microbiology 07/08/21 09:36 Aerobic Culture - Preliminary Leg, Left Gram Stain - Final Anaerobic Culture - Preliminary 07/06/21 15:47 Blood Culture - Final Blood - Venous - Lab Draw 07/06/21 15:38 Blood Culture - Final Blood - Venous Med Orders - Current: Current Medications Acetaminophen (Acetaminophen 325 Mg Tab) 650 mg PO Q4H PRN PRN Reason: Pain (Mild 1-3)/fever Last Admin: 07/11/21 16:32 Dose: 650 mg Documented by: Calcium Carbonate/Glycine (Calcium Carbonate 500 Mg Tab.Chew) 750 mg PO Q4H PRN PRN Reason: Indigestion Last Admin: 07/12/21 15:45 Dose: 750 mg Documented by: Furosemide (Furosemide 40 Mg Tab) 40 mg PO DAILY [facility] Last Admin: 07/12/21 08:47 Dose: 40 mg Documented by: Gabapentin (Gabapentin 100 Mg Cap) 100 mg PO BID [facility] Last Admin: 07/12/21 21:52 Dose: 100 mg Documented by: Heparin Sodium (Porcine) (Heparin Sodium 5,000 Units/Ml Vial) 5,000 units SUBCUT Q8H [facility] Last Admin: 07/13/21 02:19 Dose: 5,000 units Documented by: Ceftriaxone Sodium 1 gm/ (Sodium Chloride) 100 mls @ 200 mls/hr IV Q12H [facility] Last Admin: 07/12/21 21:52 Dose: 200 mls/hr Documented by: Vancomycin HCl 1 gm/Vancomycin HCl 250 mg/ Sodium Chloride 250 mls @ 166 mls/hr IV Q12H [facility] Last Admin: 07/13/21 03:45 Dose: 166 mls/hr Documented by: Insulin Glargine (Insulin Glarg,Human.Rec.Analog 100 Unit/Ml) 50 unit SUBCUT DAILY [facility] Last Admin: 07/12/21 08:47 Dose: 50 units Documented by: Insulin Human Lispro (Insulin Lispro 100 Unit/Ml 10 Ml Vial) 0 unit SUBCUT QIDACANDBED [facility]; Protocol Last Admin: 07/13/21 06:36 Dose: Not Given Documented by: Ondansetron HCl (Ondansetron 4 Mg/2 Ml Sdv) 4 mg IV Q4H PRN PRN Reason: Nausea/Vomiting Oxycodone HCl (Oxycodone 5 Mg Tab) 5 mg PO Q4H PRN PRN Reason: Pain (moderate 4-6) Last Admin: 07/13/21 03:38 Dose: 5 mg Documented by: Sodium Chloride (Sodium Chloride 0.9% 10 Ml Syringe) 10 ml FLUSH ASDIRECTED PRN PRN Reason: Keep Vein Open Last Admin: 07/06/21 16:05 Dose: 10 ml Documented by: Vancomycin HCl (Pharmacy To Dose - Vancomycin) 0 dose .XX ASDIRECTED PRN PRN Reason: RX TO DOSE VANCOMYCIN Discontinued Medications Calcium Carbonate/Glycine (Calcium Carbonate 500 Mg Tab.Chew) 750 mg PO TID PRN PRN Reason: Heartburn Last Admin: 07/12/21 09:19 Dose: 750 mg Documented by: Diphenhydramine HCl (Diphenhydramine 50 Mg Cap) 50 mg PO ONETIME ONE Stop: 07/12/21 16:16 Last Admin: 07/12/21 16:54 Dose: 50 mg Documented by: Hydromorphone HCl (Hydromorphone 0.5 Mg/0.5 Ml Syringe) 0.5 mg IVPUSH ONETIME ONE Stop: 07/06/21 17:23 Last Admin: 07/06/21 17:29 Dose: 0.5 mg Documented by: Vancomycin HCl 2 gm/ Sodium (Chloride) 250 mls @ 250 mls/hr IV ONETIME ONE Stop: 07/06/21 16:16 Last Admin: 07/06/21 16:04 Dose: 250 mls/hr Documented by: Vancomycin HCl 1 gm/Vancomycin HCl 250 mg/ Sodium Chloride 250 mls @ 166.667 mls/hr IV Q24H [facility] Stop: 07/11/21 20:00 Last Admin: 07/11/21 16:23 Dose: 166.667 mls/hr Documented by: Lactated Ringer's (Ringers, Lactated) 1,000 mls @ 75 mls/hr IV ASDIRECTED [facility] Last Admin: 07/06/21 19:43 Dose: 75 mls/hr Documented by: Insulin Glargine (Insulin Glarg,Human.Rec.Analog 100 Unit/Ml) 50 unit SUBCUT DAILY [facility] Last Admin: 07/08/21 09:42 Dose: 50 units Documented by: Insulin Glargine (Insulin Glarg,Human.Rec.Analog 100 Unit/Ml) 50 unit SUBCUT DAILY [facility] Potassium Chloride (Potassium Chloride 20 Meq Tab.Er) 40 meq PO ONETIME ONE Stop: 07/06/21 18:34 Last Admin: 07/06/21 18:56 Dose: 40 meq Documented by: Potassium Chloride (Potassium Chloride 20 Meq Tab.Er) 40 meq PO ONETIME ONE Stop: 07/10/21 09:29 Last Admin: 07/10/21 09:56 Dose: 40 meq Documented by: - Exam Quality Assessment: DVT Prophylaxis. No: Supplemental Oxygen General: Alert, Oriented, Cooperative, No Acute Distress HEENT: Pupils Equal, Pupils Reactive, EOMI, Mucous Membr. Moist/[place] Neck: Supple, Trachea Midline Lungs: Clear to Auscultation, Normal Respiratory Effort Cardiovascular: Regular Rate, Regular Rhythm GI/Abdominal Exam: Normal Bowel Sounds, Soft, Non-Tender, No Distention (Female) Exam: Deferred Back Exam: Normal Inspection, Full Range of Motion Extremities: Pedal Edema (Bilateral, chronic) Skin: Warm, Dry, Rash, Other (Spreading rash noted to her upper thighs as well as her abdomen. Appears like reaction to vancomycin.) Wound/Incisions: Healing Well, Dressing Dry and Intact Neurological: No New Focal Deficit Psy/Mental Status: Alert, Normal Affect, Normal Mood - Patient Data Lab Results Last 24 hrs: Laboratory Results - last 24 hr 07/12/21 07/12/21 07/12/21 Range/Units 10:35 16:53 21:25 POC Glucose 191 H 182 H 210 H (70-99) mg/dL 07/13/21 Range/Units 05:46 POC Glucose 146 H (70-99) mg/dL Result Diagrams: 07/13/21 08:00 07/13/21 08:00 Jose Results Last 24 hrs: Microbiology 07/08/21 09:36 Aerobic Culture - Preliminary Leg, Left Gram Stain - Final Anaerobic Culture - Preliminary 07/06/21 15:47 Blood Culture - Final Blood - Venous - Lab Draw 07/06/21 15:38 Blood Culture - Final Blood - Venous Sepsis Event Note - Evaluation Sepsis Screening Result: No Definite Risk - Focused Exam Vital Signs: Vital Signs Temp Pulse Resp BP Pulse Ox 07/13/21 03:04 36.6 C 88 18 106/79 94 L 07/12/21 21:51 36.9 C 90 13 121/61 92 L - Problem List & Annotations (1) Cellulitis of left leg SNOMED Code(s): 032274578 Code(s): L03.116 - CELLULITIS OF LEFT LOWER LIMB Status: Acute Priority: High Current Visit: Yes (2) Hyperglycemia due to type 2 diabetes mellitus SNOMED Code(s): 635467473185839, 848803018477023 Code(s): E11.65 - TYPE 2 DIABETES MELLITUS WITH HYPERGLYCEMIA Status: Acute Priority: Medium Current Visit: Yes Qualifiers: Diabetes mellitus penitentiary insulin use: without equipment operator intermodal yard use Qualified Code(s): E11.65 - Type 2 diabetes mellitus with hyperglycemia (3) Venous stasis dermatitis of both lower extremities SNOMED Code(s): 28503815 Code(s): I87.2 - VENOUS INSUFFICIENCY (CHRONIC) (PERIPHERAL) Status: Chronic Priority: Medium Current Visit: Yes - Problem List Review Problem List Initiated/Reviewed/Updated: Yes - Assessment Assessment:: The patient is a 55-year-old lady who has been admitted secondary to severe cellulitis predominantly of her left lower leg. I have compared admission phot ographs with current view and there has been significant improvement. The patient does have chronic peripheral edema secondary to venous stasis. The patient did have a rash and I am concerned about her possibly being allergic to the vancomycin. I have discontinued the vancomycin and started the patient on linezolid. 600 mg p.o. twice daily. This will likely be a good medication for her once discharge. Cultures are currently pending. Repeat laboratory studies have been ordered for the morning. Wound care will continue to address the cellulitis. Diabetic counselor has been requested as well as dietitian. Patient should be appropriate for discharge in 1 to 2 days. - Plan Plan:: This is a 55F with PMhx noted below presenting for evaluation of left lower extremity edema. The patient has had 2 days of worsening left lower extremity erythema and edema. She denies previous history of DVT. In the ED. Blood cultures were obtained. She was started on IV vancomycin and admitted for further evaluation. 1. Sepsis secondary to Cellulitis of left lower extremity; tachycardia; +Leukocytosis 2. Hx of Type II DM 3. Hypovolemic hyponatremia; sodium 134 on admission 4. Hypokalemia 5. Acute kidney injury; Cr 1.5 on admission Plan -Patient on pharmacy dosed vancomycin protocol as well as Rocephin. -PT consultation for lancing of the wounds and continued basic wound care. Aerobic and anaerobic cultures have been sent, cultures continue to be negative to date. -doppler venous US negative for DVT -Intermittent check of labs. Minimal improvement in comparison to yesterday but overall improvement in comparison to time of admission. Plan is to continue full course of antibiotic therapy of at least 7 to 10 days as previously discussed with the care team. Patient will need wound care as well as wound care supplies on an outpatient basis. I am told that she is likely going to have to be responsible for these by herself as she will have to purchase these from a local pharmacy. There are likely insurance issues. This case will be personally signed out to the oncoming provider who will be taking over her care tomorrow. Code-DNR/DNI DVT ppx-heparin subq
[2021-07-13] MEDS: Insulin Glarg,Human.Rec.Analog 100 Unit/ML SUBCUT SCH (08:23)
[2021-07-13] MEDS: Gabapentin 100 MG Cap PO SCH ×2 (08:24→20:41)
[2021-07-13] MEDS: Furosemide 40 MG Tab PO SCH (08:24)
[2021-07-13] MEDS ORDERED: diphenhydrAMINE 50 MG Cap PO ONE (09:21)
[2021-07-13] MEDS: cefTRIAXone 1 GM in Sodium Chloride 0.9% 100 ML IV SCH (09:33)
[2021-07-13] MEDS: Calcium Carbonate 500 MG Tab.Chew PO PRN ×2 (09:39→20:42)
[2021-07-13] MEDS: Linezolid 600 MG Tab PO SCH ×2 (10:52→20:41)
[2021-07-13] MEDS ORDERED: predniSONE 20 MG Tab PO ONE (13:12)
[2021-07-13] MEDS ORDERED: diphenhydrAMINE 25 MG Cap PO ONE (23:40)
[2021-07-14] MEDS: Heparin Sodium 5,000 Units/ML Vial SUBCUT SCH ×3 (02:16→17:26)
[2021-07-14] MEDS: oxyCODONE 5 MG Tab PO PRN (02:26)
[2021-07-14] MEDS: Insulin Lispro 100 UNIT/ML 10 ML Vial SUBCUT SCH ×5 (07:16→21:50)
[2021-07-14] MEDS: Insulin Glarg,Human.Rec.Analog 100 Unit/ML SUBCUT SCH (09:14)
[2021-07-14] MEDS: Gabapentin 100 MG Cap PO SCH ×2 (09:16→21:49)
[2021-07-14] MEDS: Furosemide 40 MG Tab PO SCH (09:17)
[2021-07-14] MEDS: Linezolid 600 MG Tab PO SCH ×2 (09:17→21:50)
[2021-07-14] MEDS: predniSONE 20 MG Tab PO SCH (12:24)
--- NOTE | 2021-07-14 12:37 | PCM.PN ---
- General Info Date of Service: 07/14/21 Admission Dx/Problem (Free Text): Admission Diagnosis/Problem Admission Diagnosis/Problem left lower extremity cellulitis/erysipelas Subjective Update: The patient is a 55-year-old lady who was admitted secondary to cellulitis with chronic venous stasis of her lower extremities. Overall left leg was worse than right leg. Today she has had some improvement. The patient says that she has no pain. Her inflammation has markedly improved. The patient says that she is doing better today. She has no other complaints. She has been tolerating her diet. The patient feels like she can go home soon. Functional Status: Reports: Pain Controlled, Tolerating Diet - Review of Systems General: Reports: No Symptoms HEENT: Reports: No Symptoms Pulmonary: Reports: No Symptoms Cardiovascular: Reports: No Symptoms Gastrointestinal: Reports: No Symptoms Genitourinary: Reports: No Symptoms Musculoskeletal: Reports: No Symptoms Skin: Reports: Rash, Other Neurological: Reports: No Symptoms Psychiatric: Reports: No Symptoms - Patient Data Vitals - Most Recent: Last Vital Signs Temp 36.9 C 07/14/21 11:01 Pulse 80 07/14/21 11:01 Resp 20 07/14/21 11:01 BP 125/64 07/14/21 11:01 Pulse Ox 94 L 07/14/21 11:01 Weight - Most Recent: 98.021 kg I&O - Last 24 Hours: Intake & Output 07/13/21 07/14/21 07/14/21 22:59 06:59 14:59 Intake Total 800 400 Output Total 300 Balance 500 400 Lab Results Last 24 Hours: Laboratory Results - last 24 hr 07/13/21 07/13/21 07/14/21 Range/Units 16:12 20:32 06:44 POC Glucose 213 H 342 H 164 H (70-99) mg/dL 07/14/21 Range/Units 10:56 POC Glucose 161 H (70-99) mg/dL Jose Results Last 24 Hours: Microbiology 07/08/21 09:36 Aerobic Culture - Final Leg, Left Gram Stain - Final Anaerobic Culture - Final Med Orders - Current: Current Medications Acetaminophen (Acetaminophen 325 Mg Tab) 650 mg PO Q4H PRN PRN Reason: Pain (Mild 1-3)/fever Last Admin: 07/11/21 16:32 Dose: 650 mg Documented by: Calcium Carbonate/Glycine (Calcium Carbonate 500 Mg Tab.Chew) 750 mg PO Q4H PRN PRN Reason: Indigestion Last Admin: 07/13/21 20:42 Dose: 750 mg Documented by: Diphenhydramine HCl (Diphenhydramine 50 Mg Cap) 50 mg PO Q6H PRN PRN Reason: Allergies Furosemide (Furosemide 40 Mg Tab) 40 mg PO DAILY [facility] Last Admin: 07/14/21 09:17 Dose: 40 mg Documented by: Gabapentin (Gabapentin 100 Mg Cap) 100 mg PO BID [facility] Last Admin: 07/14/21 09:16 Dose: 100 mg Documented by: Heparin Sodium (Porcine) (Heparin Sodium 5,000 Units/Ml Vial) 5,000 units SUBCUT Q8H [facility] Last Admin: 07/14/21 09:17 Dose: 5,000 units Documented by: Insulin Glargine (Insulin Glarg,Human.Rec.Analog 100 Unit/Ml) 50 unit SUBCUT DAILY [facility] Last Admin: 07/14/21 09:14 Dose: 50 units Documented by: Insulin Human Lispro (Insulin Lispro 100 Unit/Ml 10 Ml Vial) 0 unit SUBCUT QIDACANDBED [facility]; Protocol Last Admin: 07/14/21 09:16 Dose: 2 units Documented by: Linezolid (Linezolid 600 Mg Tab) 600 mg PO BID [facility] Last Admin: 07/14/21 09:17 Dose: 600 mg Documented by: Ondansetron HCl (Ondansetron 4 Mg/2 Ml Sdv) 4 mg IV Q4H PRN PRN Reason: Nausea/Vomiting Oxycodone HCl (Oxycodone 5 Mg Tab) 5 mg PO Q4H PRN PRN Reason: Pain (moderate 4-6) Last Admin: 07/14/21 02:26 Dose: 5 mg Documented by: Prednisone (Prednisone 20 Mg Tab) 20 mg PO DAILY [facility] Last Admin: 07/14/21 12:24 Dose: 20 mg Documented by: Sodium Chloride (Sodium Chloride 0.9% 10 Ml Syringe) 10 ml FLUSH ASDIRECTED PRN PRN Reason: Keep Vein Open Last Admin: 07/06/21 16:05 Dose: 10 ml Documented by: Discontinued Medications Calcium Carbonate/Glycine (Calcium Carbonate 500 Mg Tab.Chew) 750 mg PO TID PRN PRN Reason: Heartburn Last Admin: 07/12/21 09:19 Dose: 750 mg Documented by: Diphenhydramine HCl (Diphenhydramine 50 Mg Cap) 50 mg PO ONETIME ONE Stop: 07/12/21 16:16 Last Admin: 07/12/21 16:54 Dose: 50 mg Documented by: Diphenhydramine HCl (Diphenhydramine 50 Mg Cap) 50 mg PO ONETIME ONE Stop: 07/13/21 09:22 Last Admin: 07/13/21 09:32 Dose: 50 mg Documented by: Diphenhydramine HCl (Diphenhydramine 25 Mg Cap) 25 mg PO ONETIME ONE Stop: 07/13/21 23:41 Last Admin: 07/13/21 23:51 Dose: 25 mg Documented by: Hydromorphone HCl (Hydromorphone 0.5 Mg/0.5 Ml Syringe) 0.5 mg IVPUSH ONETIME ONE Stop: 07/06/21 17:23 Last Admin: 07/06/21 17:29 Dose: 0.5 mg Documented by: Vancomycin HCl 2 gm/ Sodium (Chloride) 250 mls @ 250 mls/hr IV ONETIME ONE Stop: 07/06/21 16:16 Last Admin: 07/06/21 16:04 Dose: 250 mls/hr Documented by: Vancomycin HCl 1 gm/Vancomycin HCl 250 mg/ Sodium Chloride 250 mls @ 166.667 mls/hr IV Q24H [facility] Stop: 07/11/21 20:00 Last Admin: 07/11/21 16:23 Dose: 166.667 mls/hr Documented by: Lactated Ringer's (Ringers, Lactated) 1,000 mls @ 75 mls/hr IV ASDIRECTED [facility] Last Admin: 07/06/21 19:43 Dose: 75 mls/hr Documented by: Ceftriaxone Sodium 1 gm/ (Sodium Chloride) 100 mls @ 200 mls/hr IV Q12H [facility] Last Admin: 07/13/21 09:33 Dose: Not Given Documented by: Vancomycin HCl 1 gm/Vancomycin HCl 250 mg/ Sodium Chloride 250 mls @ 166 mls/hr IV Q12H [facility] Last Admin: 07/13/21 03:45 Dose: 166 mls/hr Documented by: Insulin Glargine (Insulin Glarg,Human.Rec.Analog 100 Unit/Ml) 50 unit SUBCUT DAILY [facility] Last Admin: 07/08/21 09:42 Dose: 50 units Documented by: Insulin Glargine (Insulin Glarg,Human.Rec.Analog 100 Unit/Ml) 50 unit SUBCUT DAILY [facility] Potassium Chloride (Potassium Chloride 20 Meq Tab.Er) 40 meq PO ONETIME ONE Stop: 07/06/21 18:34 Last Admin: 07/06/21 18:56 Dose: 40 meq Documented by: Potassium Chloride (Potassium Chloride 20 Meq Tab.Er) 40 meq PO ONETIME ONE Stop: 07/10/21 09:29 Last Admin: 07/10/21 09:56 Dose: 40 meq Documented by: Prednisone (Prednisone 20 Mg Tab) 20 mg PO ONETIME ONE Stop: 07/13/21 13:13 Last Admin: 07/13/21 13:18 Dose: 20 mg Documented by: Vancomycin HCl (Pharmacy To Dose - Vancomycin) 0 dose .XX ASDIRECTED PRN PRN Reason: RX TO DOSE VANCOMYCIN - Exam Quality Assessment: DVT Prophylaxis. No: Supplemental Oxygen General: Alert, Oriented, Cooperative, No Acute Distress HEENT: Pupils Equal, Pupils Reactive, EOMI Neck: Supple, Trachea Midline Lungs: Clear to Auscultation, Normal Respiratory Effort Cardiovascular: Regular Rate, Regular Rhythm GI/Abdominal Exam: Normal Bowel Sounds, Soft, Non-Tender, No Distention (Female) Exam: Deferred Back Exam: Normal Inspection, Full Range of Motion Extremities: Normal Inspection, Pedal Edema (Chronic edema with venous stasis dermatitis) Skin: Warm, Dry, Rash (Macular papular type rash located on trunk and left upper leg) Neurological: No New Focal Deficit, Normal Gait Psy/Mental Status: Alert, Normal Affect - Patient Data Lab Results Last 24 hrs: Laboratory Results - last 24 hr 07/13/21 07/13/21 07/14/21 Range/Units 16:12 20:32 06:44 POC Glucose 213 H 342 H 164 H (70-99) mg/dL 07/14/21 Range/Units 10:56 POC Glucose 161 H (70-99) mg/dL Result Diagrams: 07/13/21 08:00 07/13/21 08:00 Jose Results Last 24 hrs: Microbiology 07/08/21 09:36 Aerobic Culture - Final Leg, Left Gram Stain - Final Anaerobic Culture - Final Sepsis Event Note - Evaluation Sepsis Screening Result: No Definite Risk - Focused Exam Vital Signs: Vital Signs Temp Pulse Resp BP Pulse Ox 07/14/21 11:01 36.9 C 80 20 125/64 94 L 07/14/21 07:50 36.5 C 81 20 123/58 L 93 L 07/14/21 02:30 36.6 C 77 13 115/52 L 95 - Problem List & Annotations (1) Cellulitis of left leg SNOMED Code(s): 529027006 Code(s): L03.116 - CELLULITIS OF LEFT LOWER LIMB Status: Acute Priority: High Current Visit: Yes (2) Hyperglycemia due to type 2 diabetes mellitus SNOMED Code(s): 001062366489011, 630369317641289 Code(s): E11.65 - TYPE 2 DIABETES MELLITUS WITH HYPERGLYCEMIA Status: Acute Priority: Medium Current Visit: Yes Qualifiers: Diabetes mellitus roasterman insulin use: without roasterman use Qualified Code(s): E11.65 - Type 2 diabetes mellitus with hyperglycemia (3) Venous stasis dermatitis of both lower extremities SNOMED Code(s): 96262680 Code(s): I87.2 - VENOUS INSUFFICIENCY (CHRONIC) (PERIPHERAL) Status: Chronic Priority: Medium Current Visit: Yes - Problem List Review Problem List Initiated/Reviewed/Updated: Yes - My Orders Last 24 Hours: My Active Orders 07/13/21 11:51 Consult to Diabetic Nurse Specialist [CONS] Routine Consult to Computer Aided Drafter [CONS] Routine 07/14/21 09:23 predniSONE 20 mg PO DAILY 07/14/21 12:00 diphenhydrAMINE [Benadryl] 50 mg PO Q6H PRN - Assessment Assessment:: The patient is a 55-year-old lady who has been admitted secondary to severe cellulitis predominantly of her left lower leg. I have compared admission photographs with current view and there has been significant improvement. The patient does have chronic peripheral edema secondary to venous stasis. The patient did have a rash and I am concerned about her possibly being allergic to the vancomycin. I have discontinued the vancomycin and started the patient on linezolid. 600 mg p.o. twice daily. This will likely be a good medication for her once discharge. Cultures are currently pending. Repeat laboratory studies have been ordered for the morning. Wound care will continue to address the cellulitis. Diabetic counselor has been requested as well as dietitian. Patient should be appropriate for discharge in 1 to 2 days. 07/14/2021 The patient had been admitted secondary to cellulitis of her lower left leg. The patient has exhibited some improvement. She was transitioned from IV vancomycin to p.o. linezolid and has been tolerating this well. The patient will likely go home on this medication. Cultures are currently pending. Repeat laboratory studies have been ordered. She is to continue with her appropriate diet as tolerated. I have encouraged the patient to ambulate. Continue with wound care to help healing in her lower left leg. The patient might require home health will reevaluate this tomorrow. The patient will continue with the DVT prophylaxis. - Plan Plan:: This is a 55F with PMhx noted below presenting for evaluation of left lower extremity edema. The patient has had 2 days of worsening left lower extremity erythema and edema. She denies previous history of DVT. In the ED. Blood cultures were obtained. She was started on IV vancomycin and admitted for further evaluation. 1. Sepsis secondary to Cellulitis of left lower extremity; tachycardia; +Leukocytosis 2. Hx of Type II DM 3. Hypovolemic hyponatremia; sodium 134 on admission 4. Hypokalemia 5. Acute kidney injury; Cr 1.5 on admission Plan -Patient on pharmacy dosed vancomycin protocol as well as Rocephin. -PT consultation for lancing of the wounds and continued basic wound care. Aerobic and anaerobic cultures have been sent, cultures continue to be negative to date. -doppler venous US negative for DVT -Intermittent check of labs. Minimal improvement in comparison to yesterday but overall improvement in comparison to time of admission. Plan is to continue full course of antibiotic therapy of at least 7 to 10 days as previously discussed with the care team. Patient will need wound care as well as wound care supplies on an outpatient basis. I am told that she is likely going to have to be responsible for these by herself as she will have to purchase these from a local pharmacy. There are likely insurance issues. This case will be personally signed out to the oncoming provider who will be taking over her care tomorrow. Code-DNR/DNI DVT ppx-heparin subq
[2021-07-14] MEDS: diphenhydrAMINE 50 MG Cap PO PRN ×2 (13:26→21:52)
[2021-07-14] MEDS: Calcium Carbonate 500 MG Tab.Chew PO PRN ×2 (13:29→21:52)
[2021-07-15] MEDS: Heparin Sodium 5,000 Units/ML Vial SUBCUT SCH ×2 (03:43→08:34)
[2021-07-15] MEDS: Calcium Carbonate 500 MG Tab.Chew PO PRN ×2 (06:32→12:25)
[2021-07-15] MEDS: diphenhydrAMINE 50 MG Cap PO PRN ×2 (06:32→12:26)
[2021-07-15] MEDS: Insulin Lispro 100 UNIT/ML 10 ML Vial SUBCUT SCH ×2 (06:32→11:46)
[2021-07-15] MEDS: Insulin Glarg,Human.Rec.Analog 100 Unit/ML SUBCUT SCH (08:33)
[2021-07-15] MEDS: Linezolid 600 MG Tab PO SCH (08:33)
[2021-07-15] MEDS: predniSONE 20 MG Tab PO SCH (08:34)
[2021-07-15] MEDS: Gabapentin 100 MG Cap PO SCH (08:34)
[2021-07-15] MEDS: Furosemide 40 MG Tab PO SCH (08:34)
--- NOTE | 2021-07-15 08:56 | PCM.DCSUM1 ---
Discharge Summary - Hospital Course Free Text/Narrative:: The patient was admitted secondary to severe cellulitis of left lower extremity. Diagnosis: Stroke: No - Discharge Data Discharge Date: 07/15/21 Discharge Disposition: Home, Self-Care 01 Condition: Good - Referral to Home Health Primary Care Physician: Cecilia Garner MD - Discharge Diagnosis/Problem(s) (1) Cellulitis of left leg SNOMED Code(s): 185277203 ICD Code: L03.116 - CELLULITIS OF LEFT LOWER LIMB Status: Resolved Priority: High Current Visit: Yes (2) Hyperglycemia due to type 2 diabetes mellitus SNOMED Code(s): 205481282811633, 256447376862575 ICD Code: E11.65 - TYPE 2 DIABETES MELLITUS WITH HYPERGLYCEMIA Status: Chronic Priority: Medium Current Visit: Yes Qualifiers: Diabetes mellitus group home insulin use: without intermediate manager use Qualified Code(s): E11.65 - Type 2 diabetes mellitus with hyperglycemia (3) Venous stasis dermatitis of both lower extremities SNOMED Code(s): 11510016 ICD Code: I87.2 - VENOUS INSUFFICIENCY (CHRONIC) (PERIPHERAL) Status: Chronic Priority: Medium Current Visit: Yes - Patient Summary/Data Consults: Consultations 07/07/21 15:04 PT Evaluation and Treatment [CONS] Routine 07/13/21 11:51 Consult to Diabetic Nurse Specialist [CONS] Routine Consult to Principal Systems Architect [CONS] Routine Hospital Course: The patient is a 55-year-old lady who was admitted to acute hospitalization on July 06, 2021 out of concern for severe infection of her left lower extremity. The patient has as an underlying condition chronic venous stasis of both her lower legs. Upon initial presentation the patient's white blood cell count was elevated at almost 17,000. The patient also had multiple electrolyte abnormalities. The patient did not have a febrile excursion during hospitalization. The patient was initially started on vancomycin and she had tolerated this well up until 2 days before discharge. The patient developed an itchy maculopapular rash and the vancomycin was discontinued. The patient was also started on Benadryl and low-dose prednisone to help with her itching and likely vancomycin reaction. The patient was then placed on linezolid 600 mg p .o. twice daily and she tolerated this well. The patient had cultures that were taken from both the area of the cellulitis and blood cultures which did not show any growth after 5 days. The patient had continued to improve through her course of hospitalization. Wound care had been consulted to help with dressing and dressing changes. The patient's white blood cell count by day of discharge had resolved to 11.1 thousand which was likely secondary to the steroid use. The patient's blood sugars were also markedly elevated with the use of steroids. She was kept on her diabetic diet. The patient did have an ultrasound of her left lower extremity which did not show any indication of DVT. By day of discharge the patient had been hemodynamically stable and she had been tolerating her diet. The patient was sent home on 4 more days of linezolid 600 mg p.o. twice daily. The patient was also sent home on Medrol Dosepak and Singulair 10 mg p.o. daily. All of the patient's other medications were continued. The patient is also to follow-up with her primary care physician in a timely fashion. The patient has been recommended to continue with her regular diabetic diet as tolerated. She is also to have activity as tolerated. The patient has been stable and she has been discharged from acute hospitalization with the recommendations listed above. - Patient Instructions Diet: Usual Diet as Tolerated, Diabetic Diet Activity: As Tolerated Notify Provider of: Fever, Increased Pain - Discharge Plan *PRESCRIPTION DRUG MONITORING PROGRAM REVIEWED*: No *COPY OF PRESCRIPTION DRUG MONITORING REPORT IN PATIENT PENELOPE: No Prescriptions/Med Rec: methylPREDNISolone [Medrol Dose Pack] 4 mg PO ASDIRECTED #1 dospk Montelukast [Singulair] 10 mg PO DAILY #30 tab Linezolid [Zyvox] 600 mg PO BID #8 tablet Home Medications: Home Meds Furosemide [Lasix] 40 mg PO DAILY #20 tab 07/01/21 [Rx] Insulin Degludec [Tresiba] 50 units SUBCUT DAILY 07/01/21 [History] Liraglutide [Victoza 2-Kevin] 1.8 mg SUBCUT DAILY 07/01/21 [History] Ondansetron [Ondansetron ODT] 4 mg PO Q6H PRN #30 tab.rapdis 07/01/21 [Rx] Calcium Carbonate [Tums Extra Strength] 2 tab PO QID 07/06/21 [History] Potassium Chloride [Klor-Con M10] 20 meq PO DAILY 07/06/21 [History] Gabapentin [Neurontin] 100 mg PO BID 07/11/21 [History] Linezolid [Zyvox] 600 mg PO BID #8 tablet 07/15/21 [Rx] Montelukast [Singulair] 10 mg PO DAILY #30 tab 07/15/21 [Rx] methylPREDNISolone [Medrol Dose Pack] 4 mg PO ASDIRECTED #1 dospk 07/15/21 [Rx] Oxygen Therapy Mode: Room Air Patient Handouts: Cellulitis, Adult, [id number], Sepsis, Self Care, Adult Referrals: Cecilia Garner MD [Primary Care Provider] - 07/18/21 9:10 am (please attend the scheduled follow up appointment as listed.) - Discharge Summary/Plan Comment DC Time >30 min.: Yes Total # of Minutes for Discharge Time: 37 - General Info Date of Service: 07/15/21 Admission Dx/Problem (Free Text: Admission Diagnosis/Problem Admission Diagnosis/Problem left lower extremity cellulitis/erysipelas Subjective Update: Overall, the patient has improved significantly. She has been tolerating the new antibiotic. Patient also has been tolerating her diet. Her rash is significantly better. Vancomycin has been added as an allergy. The patient feels like she can safely go home. Functional Status: Reports: Pain Controlled, Tolerating Diet - Review of Systems General: Reports: No Symptoms HEENT: Reports: No Symptoms Pulmonary: Reports: No Symptoms Cardiovascular: Reports: No Symptoms Gastrointestinal: Reports: No Symptoms Genitourinary: Reports: No Symptoms Musculoskeletal: Reports: No Symptoms Skin: Reports: No Symptoms Neurological: Reports: No Symptoms Psychiatric: Reports: No Symptoms - Patient Data Vitals - Most Recent: Last Vital Signs Temp 36.6 C 07/15/21 03:36 Pulse 73 07/15/21 03:36 Resp 16 07/15/21 03:36 BP 118/64 07/15/21 03:36 Pulse Ox 96 07/15/21 03:36 Weight - Most Recent: 96.751 kg I&O - Last 24 hours: Intake & Output 07/14/21 07/15/21 07/15/21 22:59 06:59 14:59 Intake Total 1070 600 Balance 1070 600 Lab Results - Last 24 hrs: Laboratory Results - last 24 hr 08/22/21 08/22/21 08/22/21 Range/Units 10:56 16:50 21:18 WBC (3.98-10.04) K/mm3 RBC (3.98-5.22) M/mm3 Hgb (11.2-15.7) gm/dl Hct (34.1-44.9) % MCV (79.4-94.8) fl MCH (25.6-32.2) pg MCHC (32.2-35.5) g/dl RDW Std Deviation (36.4-46.3) fL Plt Count (182-369) K/mm3 MPV (9.4-12.3) fl Neut % (Auto) (34.0-71.1) % Lymph % (Auto) (19.3-51.7) % [place] % (Auto) (4.7-12.5) % Eos % (Auto) (0.7-5.8) Baso % (Auto) (0.1-1.2) % Neut # (Auto) (1.56-6.13) K/mm3 Lymph # (Auto) (1.18-3.74) K/mm3 [place] # (Auto) (0.24-0.36) K/mm3 Eos # (Auto) (0.04-0.36) K/mm3 Baso # (Auto) (0.01-0.08) K/mm3 Sodium (136-145) mEq/L Potassium (3.5-5.1) mEq/L Chloride (98-107) mEq/L Carbon Dioxide (21-32) mEq/L Anion Gap (5-15) BUN (7-18) mg/dL Creatinine (0.55-1.02) mg/dL Est Cr Clr Drug Dosing mL/min Estimated GFR (MDRD) (>60) mL/min BUN/Creatinine Ratio (14-18) Glucose (70-99) mg/dL POC Glucose 161 H 292 H 345 H (70-99) mg/dL Calcium (8.5-10.1) mg/dL 07/15/21 07/15/21 Range/Units 05:45 05:45 WBC 11.15 H (3.98-10.04) K/mm3 RBC 4.02 (3.98-5.22) M/mm3 Hgb 10.7 L (11.2-15.7) gm/dl Hct 34.7 (34.1-44.9) % MCV 86.3 (79.4-94.8) fl MCH 26.6 (25.6-32.2) pg MCHC 30.8 L (32.2-35.5) g/dl RDW Std Deviation 43.9 (36.4-46.3) fL Plt Count 548 H (182-369) K/mm3 MPV 8.5 L (9.4-12.3) fl Neut % (Auto) 69.7 (34.0-71.1) % Lymph % (Auto) 19.7 (19.3-51.7) % [place] % (Auto) 5.7 (4.7-12.5) % Eos % (Auto) 3.9 (0.7-5.8) Baso % (Auto) 0.2 (0.1-1.2) % Neut # (Auto) 7.77 H (1.56-6.13) K/mm3 Lymph # (Auto) 2.20 (1.18-3.74) K/mm3 [place] # (Auto) 0.63 H (0.24-0.36) K/mm3 Eos # (Auto) 0.44 H (0.04-0.36) K/mm3 Baso # (Auto) 0.02 (0.01-0.08) K/mm3 Sodium 139 (136-145) mEq/L Potassium 4.4 (3.5-5.1) mEq/L Chloride 104 (98-107) mEq/L Carbon Dioxide 31 (21-32) mEq/L Anion Gap 8.4 (5-15) BUN 19 H (7-18) mg/dL Creatinine 1.0 (0.55-1.02) mg/dL Est Cr Clr Drug Dosing 61.09 mL/min Estimated GFR (MDRD) 57 (>60) mL/min BUN/Creatinine Ratio 19.0 H (14-18) Glucose 160 H (70-99) mg/dL POC Glucose (70-99) mg/dL Calcium 8.6 (8.5-10.1) mg/dL Med Orders - Current: Current Medications Acetaminophen (Acetaminophen 325 Mg Tab) 650 mg PO Q4H PRN PRN Reason: Pain (Mild 1-3)/fever Last Admin: 07/11/21 16:32 Dose: 650 mg Documented by: Calcium Carbonate/Glycine (Calcium Carbonate 500 Mg Tab.Chew) 750 mg PO Q4H PRN PRN Reason: Indigestion Last Admin: 07/15/21 06:32 Dose: 750 mg Documented by: Diphenhydramine HCl (Diphenhydramine 50 Mg Cap) 50 mg PO Q6H PRN PRN Reason: Allergies Last Admin: 07/15/21 06:32 Dose: 50 mg Documented by: Furosemide (Furosemide 40 Mg Tab) 40 mg PO DAILY [facility] Last Admin: 07/15/21 08:34 Dose: 40 mg Documented by: Gabapentin (Gabapentin 100 Mg Cap) 100 mg PO BID [facility] Last Admin: 07/15/21 08:34 Dose: 100 mg Documented by: Heparin Sodium (Porcine) (Heparin Sodium 5,000 Units/Ml Vial) 5,000 units SUBCUT Q8H [facility] Last Admin: 07/15/21 08:34 Dose: 5,000 units Documented by: Insulin Glargine (Insulin Glarg,Human.Rec.Analog 100 Unit/Ml) 50 unit SUBCUT DAILY [facility] Last Admin: 07/15/21 08:33 Dose: 50 units Documented by: Insulin Human Lispro (Insulin Lispro 100 Unit/Ml 10 Ml Vial) 0 unit SUBCUT QIDACANDBED [facility]; Protocol Last Admin: 07/15/21 06:32 Dose: Not Given Documented by: Linezolid (Linezolid 600 Mg Tab) 600 mg PO BID [facility] Last Admin: 07/15/21 08:33 Dose: 600 mg Documented by: Ondansetron HCl (Ondansetron 4 Mg/2 Ml Sdv) 4 mg IV Q4H PRN PRN Reason: Nausea/Vomiting Oxycodone HCl (Oxycodone 5 Mg Tab) 5 mg PO Q4H PRN PRN Reason: Pain (moderate 4-6) Last Admin: 07/14/21 02:26 Dose: 5 mg Documented by: Prednisone (Prednisone 20 Mg Tab) 20 mg PO DAILY [facility] Last Admin: 07/15/21 08:34 Dose: 20 mg Documented by: Sodium Chloride (Sodium Chloride 0.9% 10 Ml Syringe) 10 ml FLUSH ASDIRECTED PRN PRN Reason: Keep Vein Open Last Admin: 07/06/21 16:05 Dose: 10 ml Documented by: Discontinued Medications Calcium Carbonate/Glycine (Calcium Carbonate 500 Mg Tab.Chew) 750 mg PO TID PRN PRN Reason: Heartburn Last Admin: 07/12/21 09:19 Dose: 750 mg Documented by: Diphenhydramine HCl (Diphenhydramine 50 Mg Cap) 50 mg PO ONETIME ONE Stop: 07/12/21 16:16 Last Admin: 07/12/21 16:54 Dose: 50 mg Documented by: Diphenhydramine HCl (Diphenhydramine 50 Mg Cap) 50 mg PO ONETIME ONE Stop: 07/13/21 09:22 Last Admin: 07/13/21 09:32 Dose: 50 mg Documented by: Diphenhydramine HCl (Diphenhydramine 25 Mg Cap) 25 mg PO ONETIME ONE Stop: 07/13/21 23:41 Last Admin: 07/13/21 23:51 Dose: 25 mg Documented by: Hydromorphone HCl (Hydromorphone 0.5 Mg/0.5 Ml Syringe) 0.5 mg IVPUSH ONETIME ONE Stop: 07/06/21 17:23 Last Admin: 07/06/21 17:29 Dose: 0.5 mg Documented by: Vancomycin HCl 2 gm/ Sodium (Chloride) 250 mls @ 250 mls/hr IV ONETIME ONE Stop: 07/06/21 16:16 Last Admin: 07/06/21 16:04 Dose: 250 mls/hr Documented by: Vancomycin HCl 1 gm/Vancomycin HCl 250 mg/ Sodium Chloride 250 mls @ 166.667 mls/hr IV Q24H [facility] Stop: 07/11/21 20:00 Last Admin: 07/11/21 16:23 Dose: 166.667 mls/hr Documented by: Lactated Ringer's (Ringers, Lactated) 1,000 mls @ 75 mls/hr IV ASDIRECTED [facility] Last Admin: 07/06/21 19:43 Dose: 75 mls/hr Documented by: Ceftriaxone Sodium 1 gm/ (Sodium Chloride) 100 mls @ 200 mls/hr IV Q12H [facility] Last Admin: 07/13/21 09:33 Dose: Not Given Documented by: Vancomycin HCl 1 gm/Vancomycin HCl 250 mg/ Sodium Chloride 250 mls @ 166 mls/hr IV Q12H [facility] Last Admin: 07/13/21 03:45 Dose: 166 mls/hr Documented by: Insulin Glargine (Insulin Glarg,Human.Rec.Analog 100 Unit/Ml) 50 unit SUBCUT DAILY [facility] Last Admin: 07/08/21 09:42 Dose: 50 units Documented by: Insulin Glargine (Insulin Glarg,Human.Rec.Analog 100 Unit/Ml) 50 unit SUBCUT DAILY [facility] Potassium Chloride (Potassium Chloride 20 Meq Tab.Er) 40 meq PO ONETIME ONE Stop: 07/06/21 18:34 Last Admin: 07/06/21 18:56 Dose: 40 meq Documented by: Potassium Chloride (Potassium Chloride 20 Meq Tab.Er) 40 meq PO ONETIME ONE Stop: 07/10/21 09:29 Last Admin: 07/10/21 09:56 Dose: 40 meq Documented by: Prednisone (Prednisone 20 Mg Tab) 20 mg PO ONETIME ONE Stop: 07/13/21 13:13 Last Admin: 07/13/21 13:18 Dose: 20 mg Documented by: Vancomycin HCl (Pharmacy To Dose - Vancomycin) 0 dose .XX ASDIRECTED PRN PRN Reason: RX TO DOSE VANCOMYCIN - Exam Quality Assessment: Denies: Supplemental Oxygen, DVT Prophylaxis General: Reports: Alert, Oriented, Cooperative, No Acute Distress HEENT: Reports: Pupils Equal, Pupils Reactive, EOMI, Mucous Membr. Moist/[place] (Edentulous) Neck: Reports: Supple, Trachea Midline Lungs: Reports: Clear to Auscultation, Normal Respiratory Effort Cardiovascular: Reports: Regular Rate, Regular Rhythm GI/Abdominal Exam: Normal Bowel Sounds, Soft, Non-Tender, No Distention (Female) Exam: Deferred Rectal (Female) Exam: Deferred Back Exam: Reports: Normal Inspection, Full Range of Motion Extremities: Normal Inspection, Normal Range of Motion, Pedal Edema (Chronic pedal edema with venous stasis) Skin: Reports: Warm, Dry, Other (The area of cellulitis left lower extremity has improved to the point that there are no open wounds. The skin is clean and cool.) Wound/Incisions: Reports: Healing Well Neurological: Reports: No New Focal Deficit Psy/Mental Status: Reports: Alert, Normal Affect, Normal Mood
== END 2021-07-15 14:39 | disposition home or self-care (01) | DRG 872 ==
LOC: JD.ED 14:47 → JD.MS 17:53
PROVIDERS: ADMIT Hospitalist; ATTEND Hospitalist
DX: A41.9 Sepsis, unspecified organism (principal); L03.116 Cellulitis of left lower limb; E87.1 Hypo-osmolality and hyponatremia; N17.9 Acute kidney failure, unspecified; Z66 Do not resuscitate; E11.9 Type 2 diabetes mellitus without complications; E11.65 Type 2 diabetes mellitus with hyperglycemia; I87.2 Venous insufficiency (chronic) (peripheral); R21 Rash and other nonspecific skin eruption; Z79.4 Long term (current) use of insulin; Z79.899 Other long term (current) drug therapy; T38.0X5A Adverse effect of glucocorticoids and synthetic analogues, initial encounter; Z88.0 Allergy status to penicillin; Z88.2 Allergy status to sulfonamides; H54.7 Unspecified visual loss; K21.9 Gastro-esophageal reflux disease without esophagitis; K44.9 Diaphragmatic hernia without obstruction or gangrene; M19.90 Unspecified osteoarthritis, unspecified site; Q05.9 Spina bifida, unspecified; E66.9 Obesity, unspecified; Z90.49 Acquired absence of other specified parts of digestive tract; Z96.642 Presence of left artificial hip joint; Z96.612 Presence of left artificial shoulder joint; Z20.822 Contact with and (suspected) exposure to COVID-19; E87.6 Hypokalemia
CPT/HCPCS: 36415; 80053; 83605; 85025; 86140; 87040 ×2; 96365; 96375; 99285; J1170; J3370; J7050; U0002; 80048; 80202; 82947; 85027; 87070; 87075; 87205; 93971-26-LT; 93971-LT; 97110-GP; 97162-GP; 97597-GP; 99221; 99232; 99239; 99284; A9270-GY; J0696; J1644; J1815-GY; J7120; J7512